=== PATIENT | male | born 1955 | race Caucasian/White ===

== ENCOUNTER 2019-07-08 07:32 | Inpatient (IN) | payer OTHER ==
[2019-07-08] MEDS ORDERED: RINGERS SOLUTION,LACTATED 1,000 ML IV ONE (08:19)
[2019-07-08 08:21] LABS: ABSOLUTE LYMPHOCYTES (AUTO) 0.6 10^3/uL (0.5-4.7); ABSOLUTE MONOCYTES (AUTO) 0.5 10^3/uL (0.1-1.4); ABSOLUTE NEUT (AUTO) 6.6 10^3/uL (1.7-8.2); BASOPHILS % (AUTO) 0.4 % (0-2); HEMATOCRIT 46.2 % (37.9-51.0); HEMOGLOBIN 15.8 g/dL (13.5-17.0); LYMPHOCYTES % (AUTO) 7.4 % (13-45); MEAN CORPUSCULAR HEMOGLOBIN 32.3 pg (27.0-33.4); MEAN CORPUSCULAR HGB CONC 34.2 g/dL (32.0-36.0); MEAN CORPUSCULAR VOLUME 95 fl (80-97); MONOCYTES % (AUTO) 6.9 % (3-13); PLATELET COUNT 145 10^3/uL (150-450); RED BLOOD COUNT 4.88 10^6/uL (4.35-5.55); RED CELL DISTRIBUTION WIDTH 12.9 % (11.5-14.0); SEGMENTED NEUTROPHILS % (AUTO) 85.3 % (42-78); TOTAL CELLS COUNTED % (AUTO) 100 %; WHITE BLOOD COUNT 7.7 10^3/uL (4.0-10.5)
--- NOTE | 2019-07-08 08:23 | ER Document Report ---
ED General - General Chief Complaint: Chest Pain Stated Complaint: CHEST PAIN Time Seen by Provider: 07/08/19 08:07 TRAVEL OUTSIDE OF THE [place] IN LAST 30 DAYS: No - HPI Context: Patient presents with cough congestion sputum production since Monday. He has been having burning in his chest worse with coughing better with not coughing. No history of heart attack or stroke. History of hypertension only otherwise states he has no known other medical problems. No abdominal pain. He is also been having intermittent vomiting. He states he had a sore throat but that is resolved. Notes: Patient presents with cough congestion since Monday with sputum production. He also has been having burning chest pain nonradiating worse with cough better with not coughing. States he has been feeling hot and cold has not had a flu shot this year. History of hypertension otherwise no other known medical problems that he knows of. He has had multiple bouts of vomiting as well since Monday in the absence of any abdominal pain. - Related Data Allergies/Adverse Reactions: codeine Allergy (Verified 07/08/19 11:42) Past Medical History - Social History Smoking Status: Never Smoker Chew tobacco use (# tins/day): No Frequency of alcohol use: None Drug Abuse: None Family History: Reviewed & Not Pertinent Patient has suicidal ideation: No Patient has homicidal ideation: No Review of Systems - Review of Systems Constitutional: No symptoms reported EENT: No symptoms reported Cardiovascular: See HPI Respiratory: See HPI Gastrointestinal: No symptoms reported Genitourinary: No symptoms reported Male Genitourinary: No symptoms reported Musculoskeletal: No symptoms reported Skin: No symptoms reported Hematologic/Lymphatic: No symptoms reported Neurological/Psychological: No symptoms reported Physical Exam - Vital signs Vitals: Temp Pulse Resp BP Pulse Ox 98.7 F 120 H 18 157/113 H 96 07/08/19 07:44 07/08/19 07:44 07/08/19 07:44 07/08/19 07:44 07/08/19 07:44 - General General appearance: Appears well, Alert - HEENT Head: Normocephalic, Atraumatic Eyes: Normal Conjunctiva: Normal Cornea: Normal Pupils: PERRL Sinus: Normal Nasal: Normal Mouth/Lips: Normal Mucous membranes: Dry - Respiratory Respiratory status: No respiratory distress Chest status: Nontender Breath sounds: Normal Chest palpation: Normal - Cardiovascular Rhythm: Tachycardia Heart sounds: Normal auscultation Murmur: No - Abdominal Inspection: Normal Distension: No distension Bowel sounds: Normal Tenderness: Nontender - Extremities General upper extremity: Normal inspection, Normal strength General lower extremity: Normal inspection, Normal strength - Neurological Neuro grossly intact: Yes Cognition: Normal Orientation: AAOx4 - Psychological Associated symptoms: Normal affect Course - Re-evaluation Re-evalutation: 07/08/19 11:39 Patient found to have elevated BNP with borderline troponin. Lungs show vascular congestion cardiomegaly. Appears patient having new onset CHF is hypertensive. Discussed case with who will place patient on Lasix and Vasotec. Will be admitted - Vital Signs Vital signs: Temp Pulse Resp BP Pulse Ox 99.3 F 120 H 18 142/72 H 96 07/08/19 12:01 07/08/19 07:44 07/08/19 13:01 07/08/19 13:01 07/08/19 13:01 - Laboratory Result Diagrams: 07/08/19 08:07 07/08/19 08:07 Laboratory results interpreted by me: 07/08/19 07/08/19 07/08/19 08:07 08:07 10:30 Plt Count 145 L Lymph % (Auto) 7.4 L Seg Neutrophils % 85.3 H Sodium 136.6 L BUN 22 H Glucose 132 H Total Bilirubin 1.7 H AST 82 H NT-Pro-B Natriuret Pep [id number] H Total Protein 6.1 L - EKG Interpretation by Me Additional EKG results interpreted by me: 07/08/19 08:25 Time 7:37 AM Rate of 117, sinus tachycardia, left bundle branch block, does not meet scarbosa criteria Discharge - Discharge Clinical Impression: New onset of congestive heart failure Condition: Good Disposition: ADMITTED INPATIENT Admitting Provider: Sunny (Hospitalist) Unit Admitted: Telemetry
[2019-07-08 08:39] LABS: ALBUMIN 3.6 g/dL (3.5-5.0); ALKALINE PHOSPHATASE 78 U/L (38-126); ANION GAP 11 (5-19); ASPARTATE AMINO TRANSFERASE 82 U/L (17-59); BILIRUBIN,DIRECT 0.4 mg/dL (0.0-0.4); BILIRUBIN,TOTAL 1.7 mg/dL (0.2-1.3); BLOOD UREA NITROGEN 22 mg/dL (7-20); CARBON DIOXIDE 22 mmol/L (22-30); CHLORIDE 104 mmol/L (98-107); CREATINE KINASE 149 U/L (55-170); GLUCOSE 132 mg/dL (75-110); POTASSIUM 4.5 mmol/L (3.6-5.0); TOTAL PROTEIN 6.1 g/dL (6.3-8.2)
[2019-07-08 08:49] LABS: CREATINE KINASE MB 0.91 ng/mL (<4.55)
[2019-07-08 08:52] LABS: TROPONIN I 0.101 ng/mL
--- NOTE | 2019-07-08 08:52 | RADIOLOGY REPORT (SQ) ---
EXAM DESCRIPTION: CHEST 2 VIEWS COMPLETED DATE/TIME: 07/08/2019 8:43 am REASON FOR STUDY: cough / congestion COMPARISON: None. NUMBER OF VIEWS: Two views. TECHNIQUE: Frontal and lateral radiographic views of the chest acquired. LIMITATIONS: None. FINDINGS: LUNGS AND PLEURA: No opacities, masses or pneumothorax. No pleural effusion. MEDIASTINUM AND HILAR STRUCTURES: No masses or contour abnormality. HEART AND VASCULAR STRUCTURES: Cardiac enlargement. Mild vascular congestion. BONES: No acute findings. HARDWARE: None in the chest. OTHER: No other significant finding. IMPRESSION: CARDIAC ENLARGEMENT. MILD VASCULAR CONGESTION. TECHNICAL DOCUMENTATION: JOB ID: [id number] [employer]- All Rights Reserved Reading location - IP/workstation name: [email or web address]
[2019-07-08] MEDS ORDERED: ASPIRIN 81 MG TABLET, CHEWABLE PO ONE (09:25)
[2019-07-08] MEDS ORDERED: NITROGLYCERIN 2% OINTMENT 1 GM PACKET TP ONE (09:27)
[2019-07-08 09:31] LABS: A TYPE INFLUENZA AG NEGATIVE (NEGATIVE); B INFLUENZA AG NEGATIVE (NEGATIVE)
[2019-07-08 11:12] LABS: TROPONIN I 0.1 ng/mL
[2019-07-08] MEDS ORDERED: ENALAPRILAT DIHYDRATE INJ/PF 2.5 MG/2 ML SDV IV ONE (12:15)
[2019-07-08] MEDS ORDERED: FUROSEMIDE INJ/PF 40 MG/4 ML SDV IV ONE (12:15)
--- NOTE | 2019-07-08 13:15 | EKG REPORT ---
SEVERITY:- ABNORMAL ECG - SINUS TACHYCARDIA MULTIPLE ATRIAL PREMATURE COMPLEXES LEFT ATRIAL ABNORMALITY LEFT BUNDLE BRANCH BLOCK : Confirmed by: Elier Zabala MD 08-Jul-2019 13:14:42
[2019-07-08] MEDS ORDERED: ONDANSETRON HCL INJ/PF 4 MG/2 ML SDV IV PRN (14:04)
[2019-07-08] MEDS ORDERED: MAG HYDROX/AL HYDROX/SIMETH SUSP 30 ML UDCUP PO PRN (14:04)
--- NOTE | 2019-07-08 14:44 | PDOC H&P ---
History of Present Illness Admission Date/PCP: 07/08/19 12:06 Patient complains of: Cough and chest pain History of Present Illness: AMINATA WATSON is a 63 year old male with a history of hypertension who presents to the hospital with complaints of progressive productive cough going on for the past 3 days. Cough is productive of some sputum with colors ranging from white to yellow to light green. Associated with it some posttussive emesis and had an episode of chills on Monday. Patient has also developed burning chest pain mostly in his right side but occasionally in his left parasternal region which began with the cough worsening. Denies any relationship to exertion or rest. Denies prior history of chest pains. Chest pain is aggravated by cough. Patient denies any history of congestive heart failure but does state that several years ago he was told that there was fluid buildup in his lungs from his heart rate beating its very fast. Denies history of atrial fibrillation. Patient currently states that the chest pain resolved since receiving the Lasix. Patient states that he takes only isosorbide and aspirin medications at home. Patient denies any shortness of breath, orthopnea, PND, or history of prior heart attacks. Past Medical History Cardiac Medical History: Reports: Hypertension Denies: Atrial Fibrillation, Congestive Heart Failure, Coronary Artery Disease, Myocardial Infarction Pulmonary Medical History: Denies: Asthma, Chronic Obstructive Pulmonary Disease (COPD) Endocrine Medical History: Denies: Diabetes Mellitus Type 1, Diabetes Mellitus Type 2 Past Surgical History Past Surgical History: Reports: None Social History Information Source: Patient Lives with: Other - NIECE Smoking Status: Never Smoker Electronic Cigarette use?: No Frequency of Alcohol Use: None Hx Recreational Drug Use: No Hx Prescription Drug Abuse: No - Advance Directive Resuscitation Status: Full Code Family History Family History: Hypertension, Malignancy - Lymphoma Parental Family History Reviewed: Yes Children Family History Reviewed: NA Sibling(s) Family History Reviewed.: Yes Medication/Allergy Home Medications: Aspirin [Aspir-Low] 81 mg PO DAILY 07/08/19 Atorvastatin Calcium [Lipitor 20 mg Tablet] 20 mg PO QHS 07/08/19 Carvedilol [Coreg 6.25 mg Tablet] 6.25 mg PO Q12 07/08/19 Hydralazine HCl [Apresoline 25 mg Tablet] 25 mg PO TID 07/08/19 Isosorbide Mononitrate [Imdur 30 mg Tablet.er] 30 mg PO DAILY 12/30/19 Pantoprazole Sodium 40 mg PO DAILY 07/08/19 Allergies/Adverse Reactions: codeine Allergy (Verified 07/08/19 11:42) Review of Systems Constitutional: PRESENT: chills. ABSENT: headache(s) Eyes: ABSENT: visual disturbances Cardiovascular: PRESENT: chest pain. ABSENT: edema, orthropnea Respiratory: PRESENT: cough. ABSENT: hemoptysis Gastrointestinal: PRESENT: as per HPI. ABSENT: abdominal pain, diarrhea Musculoskeletal: ABSENT: joint swelling Integumentary: ABSENT: diaphoresis Neurological: ABSENT: confusion Psychiatric: ABSENT: anxiety Physical Exam Vital Signs: Temp Pulse Resp BP Pulse Ox 99.3 F 120 H 18 142/72 H 96 07/08/19 12:01 07/08/19 07:44 07/08/19 13:01 07/08/19 13:01 07/08/19 13:01 Intake & Output 07/07/19 07/08/19 07/09/19 06:59 06:59 06:59 Intake Total 1000 Balance 1000 Weight 82.1 kg General appearance: PRESENT: no acute distress, cooperative Neck exam: ABSENT: JVD Respiratory exam: PRESENT: clear to auscultation donnell, symmetrical, unlabored. ABSENT: tachypnea, wheezes Cardiovascular exam: PRESENT: irregular rhythm, +S1, +S2, tachycardia GI/Abdominal exam: PRESENT: normal bowel sounds, soft. ABSENT: rebound, rigid, tenderness Extremities exam: ABSENT: calf tenderness, pedal edema, +1 edema, +2 edema Musculoskeletal exam: PRESENT: ambulatory Neurological exam: PRESENT: alert, awake, oriented to person, oriented to place, oriented to time, oriented to situation Results Laboratory Results: 07/08/19 08:07 07/08/19 08:07 07/08/19 07/08/19 07/08/19 08:07 08:07 08:07 WBC 7.7 RBC 4.88 Hgb 15.8 Hct 46.2 MCV 95 MCH 32.3 MCHC 34.2 RDW 12.9 Plt Count 145 L Seg Neutrophils % 85.3 H Sodium 136.6 L Potassium 4.5 Chloride 104 Carbon Dioxide 22 Anion Gap 11 BUN 22 H Creatinine 1.17 Est GFR ( Amer) > 60 Glucose 132 H Calcium 9.0 Magnesium 1.8 Total Bilirubin 1.7 H AST 82 H Alkaline Phosphatase 78 Total Protein 6.1 L Albumin 3.6 07/08/19 07/08/19 07/08/19 08:07 08:07 10:30 Creatine Kinase 149 CK-MB (CK-2) 0.91 Troponin I 0.101 0.100 NT-Pro-B Natriuret Pep [id number] H Impressions: Chest X-Ray 07/08/19 08:19 IMPRESSION: CARDIAC ENLARGEMENT. MILD VASCULAR CONGESTION. Assessment and Plan - Diagnosis (1) New onset of congestive heart failure Is this a current diagnosis for this admission?: Yes Plan: Patient denies any history of congestive heart failure but does report of history of fluid buildup in his lungs due to tachycardia several years ago. Chest x-ray shows cardiomegaly with pulmonary [place]. [place] [address] suggesting potential newly diagnosed congestive heart failure with EF unknown. Will check echocardiogram Lasix IV 40 mg daily with strict I's and O's and fluid restriction 1500 cc (2) Acute bronchitis Qualifiers: Bronchitis organism: unspecified organism Qualified Code(s): J20.9 - Acute bronchitis, unspecified Is this a current diagnosis for this admission?: Yes Plan: Patient's productive cough may be secondary to acute bronchitis likely viral or ?chf check sputum culture Supportive care (3) Chest pain Qualifiers: Chest pain type: intercostal pain Qualified Code(s): R07.82 - Intercostal pain Is this a current diagnosis for this admission?: Yes Plan: Chest pain is very atypical in nature and seems like it simply due to cough and may be some element of costochondritis However, in setting of left bundle branch block with unknown prior EKG, will need evaluation for CAD Cardiology consulted Troponin trend flat trend at 0.1 over the first 2. Will check 1 more. Chest pain currently resolved per patient after receiving Lasix. (4) Left bundle branch block (LBBB) determined by electrocardiography Is this a current diagnosis for this admission?: Yes Plan: Plan as above (5) Hypertension Qualifiers: Hypertension type: essential hypertension Qualified Code(s): I10 - Essential (primary) hypertension Is this a current diagnosis for this admission?: Yes Plan: Resume patient's isosorbide. Gave a dose of Vasotec and Lasix while in ER and nitro patch was placed as he came in with diastolic blood pressures in the 120s concerning for hypertensive emergency. BPs are currently better controlled now. - Time Time Spent with patient: 35 or more minutes
[2019-07-08] MEDS ORDERED: ACETAMINOPHEN 325 MG TABLET PO PRN (14:48)
[2019-07-08] MEDS: ISOSORBIDE MONONITRATE 30 MG TAB.ER.24H PO SCH (15:40)
[2019-07-08] MEDS ORDERED: LOSARTAN POTASSIUM 50 MG TABLET PO ONE (17:08)
[2019-07-08] MEDS: ATORVASTATIN CALCIUM 20 MG TABLET PO SCH (22:10)
[2019-07-08] MEDS: GUAIFENESIN 600 MG TABLET.SA PO SCH (22:10)
[2019-07-08] MEDS ORDERED: METOPROLOL TARTRATE PF/INJ 5 MG/5 ML SDV IV PRN (22:32)
[2019-07-09] MEDS: IPRATROPIUM BROMIDE 0.02% NEB 0.5 MG/2.5 ML AMPUL NEB PRN ×2 (02:17→11:04)
[2019-07-09 06:32] LABS: ABSOLUTE LYMPHOCYTES (AUTO) 1.1 10^3/uL (0.5-4.7); ABSOLUTE MONOCYTES (AUTO) 0.7 10^3/uL (0.1-1.4); ABSOLUTE NEUT (AUTO) 5.4 10^3/uL (1.7-8.2); BASOPHILS % (AUTO) 0.4 % (0-2); EOSINOPHILS % (AUTO) 0.3 % (0-6); HEMATOCRIT 41.9 % (37.9-51.0); HEMOGLOBIN 14.3 g/dL (13.5-17.0); LYMPHOCYTES % (AUTO) 14.9 % (13-45); MEAN CORPUSCULAR HEMOGLOBIN 32.6 pg (27.0-33.4); MEAN CORPUSCULAR HGB CONC 34.2 g/dL (32.0-36.0); MEAN CORPUSCULAR VOLUME 95 fl (80-97); MONOCYTES % (AUTO) 9.2 % (3-13); PLATELET COUNT 131 10^3/uL (150-450); RED CELL DISTRIBUTION WIDTH 12.9 % (11.5-14.0); SEGMENTED NEUTROPHILS % (AUTO) 75.2 % (42-78); TOTAL CELLS COUNTED % (AUTO) 100 %; WHITE BLOOD COUNT 7.1 10^3/uL (4.0-10.5)
[2019-07-09 06:49] LABS: ALBUMIN 2.9 g/dL (3.5-5.0); ALKALINE PHOSPHATASE 59 U/L (38-126); ANION GAP 7 (5-19); ASPARTATE AMINO TRANSFERASE 71 U/L (17-59); BILIRUBIN,DIRECT 0.3 mg/dL (0.0-0.4); BILIRUBIN,TOTAL 1.4 mg/dL (0.2-1.3); BLOOD UREA NITROGEN 26 mg/dL (7-20); CALCIUM 8.4 mg/dL (8.4-10.2); CARBON DIOXIDE 30 mmol/L (22-30); CHLORIDE 100 mmol/L (98-107); GLUCOSE 93 mg/dL (75-110); PHOSPHORUS 3.5 mg/dL (2.5-4.5); POTASSIUM 4.7 mmol/L (3.6-5.0); TOTAL PROTEIN 5.3 g/dL (6.3-8.2)
[2019-07-09 07:22] LABS: ERYTHROCYTE SEDIMENTATION RATE 10 mm/hr (0-20)
--- NOTE | 2019-07-09 07:25 | EKG REPORT ---
SEVERITY:- ABNORMAL ECG - SINUS RHYTHM LEFT ATRIAL ABNORMALITY LEFT BUNDLE BRANCH BLOCK : Confirmed by: Elier Zabala MD 09-Jul-2019 07:24:23
[2019-07-09] MEDS: ISOSORBIDE MONONITRATE 30 MG TAB.ER.24H PO SCH (09:09)
[2019-07-09] MEDS: PANTOPRAZOLE SODIUM 40 MG TABLET.DR PO SCH (09:09)
[2019-07-09] MEDS: GUAIFENESIN 600 MG TABLET.SA PO SCH ×2 (09:10→23:07)
[2019-07-09] MEDS: ASPIRIN 81 MG TABLET, ENT COATED PO SCH (09:10)
[2019-07-09] MEDS: LOSARTAN POTASSIUM 25 MG TABLET PO SCH ×2 (09:10→23:07)
[2019-07-09] MEDS: ENOXAPARIN SODIUM INJ 40 MG/0.4 ML DISP.SYRIN SUBCUT SCH (09:10)
[2019-07-09] MEDS ORDERED: FUROSEMIDE INJ/PF 40 MG/4 ML SDV IV SCH (10:00)
--- NOTE | 2019-07-09 12:41 | PDOC PROGRESS REPORT ---
Subjective Progress Note for:: 07/09/19 Subjective:: Patient still complaining of cough. Shortness of breath is only mild. Reason For Visit: CHF Physical Exam Vital Signs: Temp Pulse Resp BP Pulse Ox 99.9 F 113 H 14 129/102 H 94 07/09/19 12:00 07/09/19 12:00 07/09/19 12:00 07/09/19 12:00 07/09/19 12:00 Intake & Output 07/08/19 07/09/19 07/10/19 06:59 06:59 06:59 Intake Total 1000 Balance 1000 Weight 83.7 kg General appearance: PRESENT: no acute distress, cooperative Respiratory exam: PRESENT: crackles, symmetrical, unlabored. ABSENT: tachypnea, wheezes Cardiovascular exam: PRESENT: +S1, +S2, tachycardia. ABSENT: irregular rhythm GI/Abdominal exam: PRESENT: normal bowel sounds, soft. ABSENT: rebound, rigid, tenderness Extremities exam: ABSENT: pedal edema Neurological exam: PRESENT: alert, awake, oriented to person, oriented to place, oriented to time, oriented to situation Results Laboratory Results: 07/09/19 05:09 07/09/19 05:09 07/09/19 07/09/19 05:09 05:09 WBC 7.1 RBC 4.40 Hgb 14.3 Hct 41.9 MCV 95 MCH 32.6 MCHC 34.2 RDW 12.9 Plt Count 131 L Seg Neutrophils % 75.2 Sodium 136.5 L Potassium 4.7 Chloride 100 Carbon Dioxide 30 Anion Gap 7 BUN 26 H Creatinine 1.29 H Est GFR ( Amer) > 60 Glucose 93 Calcium 8.4 Phosphorus 3.5 Magnesium 1.8 Total Bilirubin 1.4 H AST 71 H Alkaline Phosphatase 59 Total Protein 5.3 L Albumin 2.9 L 07/08/19 07/08/19 07/08/19 08:07 08:07 10:30 Creatine Kinase 149 CK-MB (CK-2) 0.91 Troponin I 0.101 0.100 NT-Pro-B Natriuret Pep [id number] H 07/08/19 15:31 Creatine Kinase CK-MB (CK-2) Troponin I 0.111 NT-Pro-B Natriuret Pep Impressions: Chest X-Ray 07/08/19 08:19 IMPRESSION: CARDIAC ENLARGEMENT. MILD VASCULAR CONGESTION. Assessment and Plan - Diagnosis (1) New onset of congestive heart failure Is this a current diagnosis for this admission?: Yes Plan: Patient denies any history of congestive heart failure but does report of history of fluid buildup in his lungs due to tachycardia several years ago. Chest x-ray shows cardiomegaly with pulmonary vascular congestion. [place] [address] suggesting potential newly diagnosed congestive heart failure with EF unknown. Echocardiogram pending Lasix IV 40 mg daily with strict I's and O's and fluid restriction 1500 cc Losartan initiated Starting Coreg today Cardiology following (2) Acute bronchitis Qualifiers: Bronchitis organism: unspecified organism Qualified Code(s): J20.9 - Acute bronchitis, unspecified Is this a current diagnosis for this admission?: Yes Plan: Patient's productive cough may be secondary to acute bronchitis likely viral or ?chf check sputum culture Supportive care (3) Chest pain Qualifiers: Chest pain type: intercostal pain Qualified Code(s): R07.82 - Intercostal pain Is this a current diagnosis for this admission?: Yes Plan: Resolved currently chest pain is very atypical in nature and seems like it simply due to cough and may be some element of costochondritis However, in setting of left bundle branch block with unknown prior EKG, will need evaluation for CAD Cardiology consulted Troponin trend flat x3 (4) Left bundle branch block (LBBB) determined by electrocardiography Is this a current diagnosis for this admission?: Yes Plan: Plan as above (5) Hypertension Qualifiers: Hypertension type: essential hypertension Qualified Code(s): I10 - Essential (primary) hypertension Is this a current diagnosis for this admission?: Yes Plan: Continue isosorbide Losartan Started on Coreg - Time Time Spent with patient: 15-24 minutes
--- NOTE | 2019-07-09 13:47 | PDOC CONSULTATION ---
Consultation Consult Date: 07/09/19 Attending physician:: JEFFERY TORRES Provider Consulted: CARMEN BOYLE Consult reason:: Dyspnea History of Present Illness Admission Date/PCP: 07/08/19 12:06 History of Present Illness: AMINATA WATSON is a 63 year old male with the following medical problem 1. Longstanding hypertension Over the course of the last 5 days patient has presented with worsening shortness of breath and cough with expectoration. There are no symptoms to suggest an ongoing pneumonic process. Patient has family history of hypertension but no specific cardiac illnesses reported. He does not smoke cigarettes. No prior cardiac history or testing is reported. No chest pain is reported. His EKG has left bundle branch block. Past Medical History Cardiac Medical History: Reports: Hypertension Denies: Atrial Fibrillation, Congestive Heart Failure, Coronary Artery Disease, Myocardial Infarction Pulmonary Medical History: Denies: Asthma, Chronic Obstructive Pulmonary Disease (COPD) Endocrine Medical History: Denies: Diabetes Mellitus Type 1, Diabetes Mellitus Type 2 Past Surgical History Past Surgical History: Reports: None Social History Lives with: Other - NIECE Smoking Status: Never Smoker Electronic Cigarette use?: No Frequency of Alcohol Use: None Hx Recreational Drug Use: No Drugs: None Hx Prescription Drug Abuse: No - Advance Directive Resuscitation Status: Full Code Family History Family History: Reviewed & Not Pertinent Parental Family History Reviewed: Yes Children Family History Reviewed: NA Sibling(s) Family History Reviewed.: NA Medication/Allergy Home Medications: Aspirin [Aspir-Low] 81 mg PO DAILY 07/08/19 Atorvastatin Calcium [Lipitor 20 mg Tablet] 20 mg PO QHS 07/08/19 Carvedilol [Coreg 6.25 mg Tablet] 6.25 mg PO Q12 07/08/19 Hydralazine HCl [Apresoline 25 mg Tablet] 25 mg PO TID 07/08/19 Isosorbide Mononitrate [Imdur 30 mg Tablet.er] 30 mg PO DAILY 07/08/19 Pantoprazole Sodium 40 mg PO DAILY 07/08/19 Allergies/Adverse Reactions: codeine Allergy (Verified 07/08/19 11:42) Review of Systems Constitutional: PRESENT: as per HPI Cardiovascular: PRESENT: dyspnea on exertion Respiratory: PRESENT: cough, dyspnea Genitourinary: PRESENT: as per HPI Integumentary: PRESENT: as per HPI Physical Exam Vital Signs: Temp Pulse Resp BP Pulse Ox 99.9 F 113 H 14 129/102 H 94 07/09/19 12:00 07/09/19 12:00 07/09/19 12:00 07/09/19 12:00 07/09/19 12:00 Intake & Output 07/08/19 07/09/19 07/10/19 06:59 06:59 06:59 Intake Total 1000 360 Output Total 300 Balance 1000 60 Weight 83.7 kg General appearance: PRESENT: no acute distress, cooperative Head exam: PRESENT: atraumatic, normocephalic Eye exam: PRESENT: conjunctiva pink, EOMI Mouth exam: PRESENT: moist Neck exam: PRESENT: JVD Respiratory exam: PRESENT: crackles, decreased breath sounds, unlabored Cardiovascular exam: PRESENT: RRR, +S1, +S2 Pulses: PRESENT: normal radial pulses GI/Abdominal exam: PRESENT: soft Rectal exam: PRESENT: deferred Musculoskeletal exam: PRESENT: normal inspection Neurological exam: PRESENT: alert, awake, oriented to person, oriented to place, oriented to time Psychiatric exam: PRESENT: appropriate affect Skin exam: PRESENT: dry, intact Results Laboratory Results: 07/09/19 05:09 07/09/19 05:09 07/09/19 07/09/19 05:09 05:09 WBC 7.1 RBC 4.40 Hgb 14.3 Hct 41.9 MCV 95 MCH 32.6 MCHC 34.2 RDW 12.9 Plt Count 131 L Seg Neutrophils % 75.2 Sodium 136.5 L Potassium 4.7 Chloride 100 Carbon Dioxide 30 Anion Gap 7 BUN 26 H Creatinine 1.29 H Est GFR ( Amer) > 60 Glucose 93 Calcium 8.4 Phosphorus 3.5 Magnesium 1.8 Total Bilirubin 1.4 H AST 71 H Alkaline Phosphatase 59 Total Protein 5.3 L Albumin 2.9 L 07/08/19 07/08/19 07/08/19 08:07 08:07 10:30 Creatine Kinase 149 CK-MB (CK-2) 0.91 Troponin I 0.101 0.100 NT-Pro-B Natriuret Pep [id number] H 07/08/19 15:31 Creatine Kinase CK-MB (CK-2) Troponin I 0.111 NT-Pro-B Natriuret Pep EKG Comments: Twelve-lead EKG. Independently reviewed by me. Sinus rhythm, left bundle branch block, left atrial abnormality Impressions: Chest X-Ray 07/08/19 08:19 IMPRESSION: CARDIAC ENLARGEMENT. MILD VASCULAR CONGESTION. Assessment & Plan - Diagnosis (1) New onset of congestive heart failure Is this a current diagnosis for this admission?: Yes Plan: 1. Presentation consistent with new onset congestive heart failure Agree with intravenous diuretics. Watch fluid status Watch electrolytes including potassium and magnesium as we are diuresing Patient has elevated JVD and crackles indicative of volume overload. Obtain transthoracic echocardiogram (2) Left bundle branch block (LBBB) determined by electrocardiography Is this a current diagnosis for this admission?: Yes Plan: EKG with left bundle branch block We will obtain transthoracic echocardiogram No ischemic symptoms at the moment. (3) Hypertension Qualifiers: Hypertension type: essential hypertension Qualified Code(s): I10 - Essential (primary) hypertension Is this a current diagnosis for this admission?: Yes Plan: Agree with present regimen of antihypertensives. Continue losartan Continue carvedilol - Notes Notes: Initiate diuretic therapy Better control blood pressure Transthoracic echocardiogram
[2019-07-09] MEDS: MAGNESIUM OXIDE 400 MG TABLET PO SCH (14:26)
[2019-07-09] MEDS: CARVEDILOL 6.25 MG TABLET PO SCH ×2 (14:26→23:07)
--- NOTE | 2019-07-09 19:08 | XCELERA REPORT ---
[address] [address] Transthoracic Echocardiogram Report Name: AMINATA WATSON Age: 63 yrs Gender: Male : 1955 Patient Status: [facility] Date: 07/09/2019 03:47 PM History: CHF Height: 71 in Weight: 181 lb BSA: 2.0 m2 Procedure: A complete two-dimensional transthoracic echocardiogram was performed (2D, M-mode, spectral and color flow Doppler). Reason For Study: chf? Previous Evaluation: No previous studies were available. History: Shortness of breath. CHF. Ordering Physician: JEFFERY TORRES Performed By: Suzanne De Los Santos Interpretation Summary The left ventricle is severely dilated. Left ventricular systolic function is severely reduced. LV EF is 15-20% The right ventricular systolic function is moderately reduced. There is a moderate amount of mitral regurgitation There is no aortic valve stenosis There is a moderate amount of aortic regurgitation There is a moderate to severe amount of tricuspid regurgitation Minimal pericardial effusion. MMode/2D Measurements & Calculations RVDd: 3.7 cm LVIDd: 8.0 cm FS: 10.7 % Ao root diam: IVSd: 1.1 cm LVIDs: 7.1 cm EDV(Teich): 3.2 cm LVPWd: 1.1 cm 341.8 ml Ao root area: ESV(Teich): 7.9 cm2 265.5 ml LA dimension: EF(Teich): 22.3 % 5.0 cm LVLd ap4: 7.9 cm SV(MOD-sp4): 32.0 ml EDV(MOD-sp4): 202.0 ml LVLs ap4: 7.5 cm ESV(MOD-sp4): 170.0 ml EF(MOD-sp4): 15.8 % Doppler Measurements & Calculations MV E max kenny: MV P1/2t max kenny: Ao V2 max: AI max kenny: 98.7 cm/sec 94.8 cm/sec 89.6 cm/sec 386.1 cm/sec MV A max kenny: MV P1/2t: 29.6 msec Ao max PG: AI max P.0 cm/sec MVA(P1/2t): 7.4 cm2 3.2 mmHg 59.6 mmHg MV E/A: 2.8 MV dec slope: AI dec slope: 461.9 cm/sec2 937.1 cm/sec2 AI P1/2t: MV dec time: 244.8 msec 0.10 sec LV V1 max PG: PA V2 max: PI end-d kenny: TR max kenny: 2.2 mmHg 51.3 cm/sec 175.1 cm/sec 271.5 cm/sec LV V1 max: PA max P.1 mmHg TR max P.0 cm/sec 29.5 mmHg AV P1/2t-pr_phl: MV P1/2t-pr_phl: 244.8 msec 29.8 msec Left Ventricle The left ventricle is severely dilated. There is moderate concentric left ventricular hypertrophy. Left ventricular systolic function is severely reduced. LV EF is 15-20%. The transmitral spectral Doppler flow pattern is abnormal for age. There is severe global hypokinesis of the left ventricle. Right Ventricle The right ventricle is moderately dilated. The right ventricular systolic function is moderately reduced. Atria The right atrium is moderately dilated. The left atrium is moderately dilated. The interatrial septum is intact with no evidence for an atrial septal defect. The interatrial septum bows toward right atrium consistent with elevated left atrial pressure. Mitral Valve The mitral valve is grossly normal. There is a moderate amount of mitral regurgitation. Aortic Valve The aortic valve is sclerotic, but shows no functional abnormality. The aortic valve opens well. There is no aortic valve stenosis. There is a moderate amount of aortic regurgitation. Tricuspid Valve The tricuspid valve is not well visualized, but is grossly normal. There is a moderate to severe amount of tricuspid regurgitation. Pulmonic Valve The pulmonic valve is not well seen, but is grossly normal. There is a moderate amount of pulmonic regurgitation. Great Vessels The aortic root is normal size. The inferior vena cava appeared dilated and did not change with respiration (RAP > 20 mmHg). Effusions Minimal pericardial effusion. : JEFFERY TORRES Anil
[2019-07-09] MEDS: ATORVASTATIN CALCIUM 20 MG TABLET PO SCH (23:07)
[2019-07-10 05:44] LABS: ABSOLUTE EOSINOPHILS # (AUTO) 0.2 10^3/uL (0.0-0.6); ABSOLUTE MONOCYTES (AUTO) 0.7 10^3/uL (0.1-1.4); ABSOLUTE NEUT (AUTO) 5.9 10^3/uL (1.7-8.2); BASOPHILS % (AUTO) 0.4 % (0-2); EOSINOPHILS % (AUTO) 2.1 % (0-6); HEMATOCRIT 42.2 % (37.9-51.0); HEMOGLOBIN 14.4 g/dL (13.5-17.0); LYMPHOCYTES % (AUTO) 13.1 % (13-45); MEAN CORPUSCULAR HEMOGLOBIN 32.4 pg (27.0-33.4); MEAN CORPUSCULAR VOLUME 95 fl (80-97); MONOCYTES % (AUTO) 8.9 % (3-13); PLATELET COUNT 147 10^3/uL (150-450); RED BLOOD COUNT 4.44 10^6/uL (4.35-5.55); RED CELL DISTRIBUTION WIDTH 12.9 % (11.5-14.0); SEGMENTED NEUTROPHILS % (AUTO) 75.5 % (42-78); TOTAL CELLS COUNTED % (AUTO) 100 %; WHITE BLOOD COUNT 7.9 10^3/uL (4.0-10.5)
[2019-07-10 05:48] LABS: ANION GAP 9 (5-19); BLOOD UREA NITROGEN 28 mg/dL (7-20); CALCIUM 8.4 mg/dL (8.4-10.2); CARBON DIOXIDE 26 mmol/L (22-30); CHLORIDE 101 mmol/L (98-107); GLUCOSE 104 mg/dL (75-110); POTASSIUM 4.1 mmol/L (3.6-5.0)
[2019-07-10] MEDS: ISOSORBIDE MONONITRATE 30 MG TAB.ER.24H PO SCH (09:27)
[2019-07-10] MEDS: FUROSEMIDE INJ/PF 40 MG/4 ML SDV IV SCH ×2 (09:27→17:10)
[2019-07-10] MEDS: ASPIRIN 81 MG TABLET, ENT COATED PO SCH (09:27)
[2019-07-10] MEDS: PANTOPRAZOLE SODIUM 40 MG TABLET.DR PO SCH (09:27)
[2019-07-10] MEDS: MAGNESIUM OXIDE 400 MG TABLET PO SCH (09:27)
[2019-07-10] MEDS: GUAIFENESIN 600 MG TABLET.SA PO SCH ×2 (09:27→21:54)
[2019-07-10] MEDS: LOSARTAN POTASSIUM 25 MG TABLET PO SCH ×2 (09:28→21:54)
[2019-07-10] MEDS: CARVEDILOL 6.25 MG TABLET PO SCH ×2 (09:28→21:54)
[2019-07-10] MEDS: ENOXAPARIN SODIUM INJ 40 MG/0.4 ML DISP.SYRIN SUBCUT SCH (09:28)
--- NOTE | 2019-07-10 17:31 | PDOC PROGRESS REPORT ---
Subjective Progress Note for:: 07/10/19 Subjective:: Patient is still experiencing cough. However denies orthopnea and's shortness of breath still Reason For Visit: CHF Physical Exam Vital Signs: Temp Pulse Resp BP Pulse Ox 98.7 F 82 18 127/78 H 96 07/10/19 16:00 07/10/19 16:00 07/10/19 16:00 07/10/19 16:00 07/10/19 16:00 Intake & Output 07/09/19 07/10/19 07/11/19 06:59 06:59 06:59 Intake Total 1000 796 Output Total 500 Balance 1000 296 Weight 83.7 kg 83 kg General appearance: PRESENT: no acute distress, cooperative Respiratory exam: PRESENT: crackles, symmetrical, unlabored. ABSENT: tachypnea, wheezes Cardiovascular exam: PRESENT: RRR, +S1, +S2. ABSENT: tachycardia GI/Abdominal exam: PRESENT: soft. ABSENT: rebound, rigid, tenderness Extremities exam: ABSENT: pedal edema Neurological exam: PRESENT: alert, awake, oriented to person, oriented to place, oriented to time, oriented to situation Results Laboratory Results: 07/10/19 04:57 07/10/19 04:57 07/10/19 07/10/19 04:57 04:57 WBC 7.9 RBC 4.44 Hgb 14.4 Hct 42.2 MCV 95 MCH 32.4 MCHC 34.0 RDW 12.9 Plt Count 147 L Seg Neutrophils % 75.5 Sodium 136.1 L Potassium 4.1 Chloride 101 Carbon Dioxide 26 Anion Gap 9 BUN 28 H Creatinine 1.32 H Est GFR ( Amer) > 60 Glucose 104 Calcium 8.4 Magnesium 2.0 07/08/19 07/08/19 07/08/19 08:07 08:07 10:30 Creatine Kinase 149 CK-MB (CK-2) 0.91 Troponin I 0.101 0.100 NT-Pro-B Natriuret Pep [id number] H 07/08/19 15:31 Creatine Kinase CK-MB (CK-2) Troponin I 0.111 NT-Pro-B Natriuret Pep Impressions: Chest X-Ray 07/08/19 08:19 IMPRESSION: CARDIAC ENLARGEMENT. MILD VASCULAR CONGESTION. Assessment and Plan - Diagnosis (1) Acute systolic heart failure Is this a current diagnosis for this admission?: Yes Plan: New onset systolic congestive heart Echocardiogram showing findings consistent with dilated cardiomyopathy with EF of 15 to 20%, moderate aortic regurgitation, moderate mitral regurgitation, tricuspid regurgitation with global LV hypokinesis Increase Lasix to 80 mg IV twice daily given inadequate diuresis on [address] condom catheter to ensure strict I's and Os fluid restriction 1500 cc Adequate afterload reduction with Coreg which are increased to 12.5 mg twice daily and losartan Cardiology following. Recommendations very much appreciated. (2) Acute bronchitis Qualifiers: Bronchitis organism: unspecified organism Qualified Code(s): J20.9 - Acute bronchitis, unspecified Is this a current diagnosis for this admission?: Yes Plan: Stable at this time but patient's cough seems to be mostly from CHF at this point (3) Chest pain Qualifiers: Chest pain type: intercostal pain Qualified Code(s): R07.82 - Intercostal pain Is this a current diagnosis for this admission?: Yes Plan: Resolved currently (4) Left bundle branch block (LBBB) determined by electrocardiography Is this a current diagnosis for this admission?: Yes Plan: No prior EKGs for comparison recently No evidence of ACS at this time as troponin had flat trend of 0.13 Patient will follow up with Dr. Boo Staples outpatient to schedule ischemic work-up (5) Hypertension Qualifiers: Hypertension type: essential hypertension Qualified Code(s): I10 - Essential (primary) hypertension Is this a current diagnosis for this admission?: Yes Plan: Blood pressure pressure is now better controlled with losartan and Coreg as well as isosorbide - Time Time Spent with patient: 15-24 minutes
[2019-07-10] MEDS ORDERED: FUROSEMIDE INJ/PF 40 MG/4 ML SDV IV SCH (18:00)
[2019-07-10] MEDS: ATORVASTATIN CALCIUM 20 MG TABLET PO SCH (21:54)
[2019-07-11 04:45] LABS: ABSOLUTE EOSINOPHILS # (AUTO) 0.4 10^3/uL (0.0-0.6); ABSOLUTE LYMPHOCYTES (AUTO) 1.4 10^3/uL (0.5-4.7); ABSOLUTE MONOCYTES (AUTO) 0.7 10^3/uL (0.1-1.4); ABSOLUTE NEUT (AUTO) 3.5 10^3/uL (1.7-8.2); BASOPHILS % (AUTO) 0.8 % (0-2); EOSINOPHILS % (AUTO) 6.5 % (0-6); HEMATOCRIT 45.7 % (37.9-51.0); HEMOGLOBIN 15.4 g/dL (13.5-17.0); LYMPHOCYTES % (AUTO) 23.2 % (13-45); MEAN CORPUSCULAR HEMOGLOBIN 32.2 pg (27.0-33.4); MEAN CORPUSCULAR HGB CONC 33.6 g/dL (32.0-36.0); MEAN CORPUSCULAR VOLUME 96 fl (80-97); MONOCYTES % (AUTO) 11.5 % (3-13); PLATELET COUNT 169 10^3/uL (150-450); RED BLOOD COUNT 4.78 10^6/uL (4.35-5.55); RED CELL DISTRIBUTION WIDTH 13.3 % (11.5-14.0); TOTAL CELLS COUNTED % (AUTO) 100 %
[2019-07-11 05:01] LABS: BLOOD UREA NITROGEN 30 mg/dL (7-20); CALCIUM 8.5 mg/dL (8.4-10.2); CHLORIDE 100 mmol/L (98-107); GLUCOSE 99 mg/dL (75-110)
[2019-07-11 05:10] LABS: ANION GAP 6 (5-19)
[2019-07-11 05:11] LABS: CARBON DIOXIDE 35 mmol/L (22-30); POTASSIUM 5.1 mmol/L (3.6-5.0)
[2019-07-11] MEDS ORDERED: FUROSEMIDE INJ/PF 100 MG/10 ML SDV IV SCH (10:00)
[2019-07-11] MEDS: MAGNESIUM OXIDE 400 MG TABLET PO SCH (10:29)
[2019-07-11] MEDS: GUAIFENESIN 600 MG TABLET.SA PO SCH ×2 (10:29→21:29)
[2019-07-11] MEDS: ISOSORBIDE MONONITRATE 30 MG TAB.ER.24H PO SCH (10:29)
[2019-07-11] MEDS: LOSARTAN POTASSIUM 25 MG TABLET PO SCH ×2 (10:30→21:29)
[2019-07-11] MEDS: ASPIRIN 81 MG TABLET, ENT COATED PO SCH (10:30)
[2019-07-11] MEDS: CARVEDILOL 6.25 MG TABLET PO SCH ×2 (10:30→21:29)
[2019-07-11] MEDS: PANTOPRAZOLE SODIUM 40 MG TABLET.DR PO SCH (10:30)
[2019-07-11] MEDS: ENOXAPARIN SODIUM INJ 40 MG/0.4 ML DISP.SYRIN SUBCUT SCH (10:30)
--- NOTE | 2019-07-11 18:44 | PDOC PROGRESS REPORT ---
Subjective Progress Note for:: 07/11/19 Subjective:: Patient continues to have some cough but is improved. Denies shortness of breath at this time. Reason For Visit: CHF Physical Exam Vital Signs: Temp Pulse Resp BP Pulse Ox 98.4 F 77 18 124/88 H 95 07/11/19 16:00 07/11/19 16:00 07/11/19 16:00 07/11/19 16:00 07/11/19 16:00 Intake & Output 07/10/19 07/11/19 07/12/19 06:59 06:59 06:59 Intake Total 796 1306 260 Output Total 500 1725 Balance 296 -419 260 Weight 83 kg 80 kg General appearance: PRESENT: no acute distress, cooperative Respiratory exam: PRESENT: crackles - Basilar, symmetrical, unlabored. ABSENT: tachypnea, wheezes Cardiovascular exam: PRESENT: RRR, +S1, +S2. ABSENT: diastolic murmur, systolic murmur, tachycardia GI/Abdominal exam: PRESENT: normal bowel sounds, soft. ABSENT: rebound, rigid, tenderness Extremities exam: PRESENT: other - Extremities are warm with well palpable pulses. ABSENT: pedal edema Neurological exam: PRESENT: alert, awake, oriented to person, oriented to place, oriented to time, oriented to situation Results Laboratory Results: 07/11/19 03:43 07/11/19 03:43 07/11/19 07/11/19 03:43 03:43 WBC 6.0 RBC 4.78 Hgb 15.4 Hct 45.7 MCV 96 MCH 32.2 MCHC 33.6 RDW 13.3 Plt Count 169 Seg Neutrophils % 58.0 Sodium 140.8 Potassium 5.1 H D Chloride 100 Carbon Dioxide 35 H Anion Gap 6 BUN 30 H Creatinine 1.62 H Est GFR ( Amer) 52 L Glucose 99 Calcium 8.5 07/08/19 07/08/19 07/08/19 08:07 08:07 10:30 Creatine Kinase 149 CK-MB (CK-2) 0.91 Troponin I 0.101 0.100 NT-Pro-B Natriuret Pep [id number] H 07/08/19 15:31 Creatine Kinase CK-MB (CK-2) Troponin I 0.111 NT-Pro-B Natriuret Pep Impressions: Chest X-Ray 07/08/19 08:19 IMPRESSION: CARDIAC ENLARGEMENT. MILD VASCULAR CONGESTION. Assessment and Plan - Diagnosis (1) Acute systolic heart failure Is this a current diagnosis for this admission?: Yes Plan: New onset systolic congestive heart Echocardiogram showing findings consistent with dilated cardiomyopathy with EF of 15 to 20%, moderate aortic regurgitation, moderate mitral regurgitation, tricuspid regurgitation with global LV hypokinesis We will hold Lasix today given COURTNEY and will just opt for optimization of afterload reduction to manage patient's heart failure. We will reintroduce Lasix once COURTNEY improves. At this time patient has warm extremities with well palpable distal pulses. Patient declined condom catheter Maintain strict I's and O's and trend creatinine fluid restriction 1500 cc Continue Coreg 12.5 mg twice daily and losartan and isosorbide Cardiology following. Recommendations very much appreciated. (2) Acute bronchitis Qualifiers: Bronchitis organism: unspecified organism Qualified Code(s): J20.9 - Acute bronchitis, unspecified Is this a current diagnosis for this admission?: Yes Plan: Stable at this time but patient's cough seems to be mostly from CHF at this point (3) Acute kidney injury superimposed on chronic kidney disease Is this a current diagnosis for this admission?: Yes Plan: Will hold Lasix today and continue to monitor creatinine (4) Left bundle branch block (LBBB) determined by electrocardiography Is this a current diagnosis for this admission?: Yes Plan: No prior EKGs for comparison recently No evidence of ACS at this time as troponin had flat trend of 0.13 Patient will follow up with Dr. Boo Staples outpatient to schedule ischemic work-up (5) Hypertension Qualifiers: Hypertension type: essential hypertension Qualified Code(s): I10 - Essential (primary) hypertension Is this a current diagnosis for this admission?: Yes Plan: Blood pressure pressure is now controlled with losartan and Coreg as well as isosorbide (6) Chest pain Qualifiers: Chest pain type: intercostal pain Qualified Code(s): R07.82 - Intercostal pain Is this a current diagnosis for this admission?: Yes Plan: Resolved currently - Time Time Spent with patient: 15-24 minutes
[2019-07-11] MEDS: ATORVASTATIN CALCIUM 20 MG TABLET PO SCH (21:29)
[2019-07-12 06:47] LABS: ANION GAP 5 (5-19); BLOOD UREA NITROGEN 28 mg/dL (7-20); CALCIUM 8.8 mg/dL (8.4-10.2); CARBON DIOXIDE 32 mmol/L (22-30); CHLORIDE 103 mmol/L (98-107); GLUCOSE 96 mg/dL (75-110); POTASSIUM 5.3 mmol/L (3.6-5.0)
[2019-07-12] MEDS: CARVEDILOL 6.25 MG TABLET PO SCH ×2 (09:36→22:08)
[2019-07-12] MEDS: ASPIRIN 81 MG TABLET, ENT COATED PO SCH (09:36)
[2019-07-12] MEDS: PANTOPRAZOLE SODIUM 40 MG TABLET.DR PO SCH (09:36)
[2019-07-12] MEDS: ISOSORBIDE MONONITRATE 30 MG TAB.ER.24H PO SCH (09:36)
[2019-07-12] MEDS: ENOXAPARIN SODIUM INJ 40 MG/0.4 ML DISP.SYRIN SUBCUT SCH (09:37)
[2019-07-12] MEDS: LOSARTAN POTASSIUM 25 MG TABLET PO SCH ×2 (09:37→22:08)
[2019-07-12] MEDS: GUAIFENESIN 600 MG TABLET.SA PO SCH (09:37)
[2019-07-12] MEDS: MAGNESIUM OXIDE 400 MG TABLET PO SCH (09:37)
[2019-07-12] MEDS: FUROSEMIDE 40 MG TABLET PO SCH ×2 (10:58→17:12)
--- NOTE | 2019-07-12 15:49 | PDOC PROGRESS REPORT ---
Subjective Subjective:: Patient continues to have some cough but is improved. Denies shortness of breath at this time. Reason For Visit: CHF Physical Exam Vital Signs: Temp Pulse Resp BP Pulse Ox 98.3 F 78 16 125/75 95 07/12/19 12:00 07/12/19 14:00 07/12/19 12:00 07/12/19 12:00 07/12/19 12:00 Intake & Output 07/11/19 07/12/19 07/13/19 06:59 06:59 06:59 Intake Total 1306 1212 1000 Output Total 1725 1100 Balance -367 186 8948 Weight 80 kg 81.4 kg General appearance: PRESENT: no acute distress, cooperative Neck exam: ABSENT: JVD Respiratory exam: PRESENT: clear to auscultation donnell, symmetrical, unlabored. ABSENT: tachypnea, wheezes Cardiovascular exam: PRESENT: RRR, +S1, +S2. ABSENT: irregular rhythm, tachycardia GI/Abdominal exam: PRESENT: normal bowel sounds, soft. ABSENT: distended, firm, guarding, rebound, rigid, tenderness Extremities exam: PRESENT: other - Warm extremities. ABSENT: pedal edema Neurological exam: PRESENT: alert, awake, oriented to person, oriented to place, oriented to time, oriented to situation Results Laboratory Results: 07/11/19 03:43 07/12/19 05:58 07/12/19 05:58 Sodium 140.2 Potassium 5.3 H Chloride 103 Carbon Dioxide 32 H Anion Gap 5 BUN 28 H Creatinine 1.27 H Est GFR ( Amer) > 60 Glucose 96 Calcium 8.8 07/08/19 07/08/19 07/08/19 08:07 08:07 10:30 Creatine Kinase 149 CK-MB (CK-2) 0.91 Troponin I 0.101 0.100 NT-Pro-B Natriuret Pep [id number] H 07/08/19 15:31 Creatine Kinase CK-MB (CK-2) Troponin I 0.111 NT-Pro-B Natriuret Pep Impressions: Chest X-Ray 07/08/19 08:19 IMPRESSION: CARDIAC ENLARGEMENT. MILD VASCULAR CONGESTION. Assessment and Plan - Diagnosis (1) Acute systolic heart failure Is this a current diagnosis for this admission?: Yes Plan: New onset systolic congestive heart Echocardiogram showing findings consistent with dilated cardiomyopathy with EF of 15 to 20%, moderate aortic regurgitation, moderate mitral regurgitation, tricuspid regurgitation with global LV hypokinesis COURTNEY has improved we will start on p.o. Lasix 40 mg twice a day monitor BMP and renal function Continue Coreg 12.5 mg twice daily and losartan and isosorbide Cardiology following. Recommendations very much appreciated. Patient is being scheduled for LifeVest at discharge-I have explained the details and need for LifeVest to patient elaborately. (2) Acute bronchitis Qualifiers: Bronchitis organism: unspecified organism Qualified Code(s): J20.9 - Acute bronchitis, unspecified Is this a current diagnosis for this admission?: Yes Plan: Stable at this time but patient's cough seems to be mostly from CHF at this point (3) Acute kidney injury superimposed on chronic kidney disease Is this a current diagnosis for this admission?: Yes Plan: Creatinine improved today. Will resume Lasix at oral dose and monitor kidney function. Hopefully hyperkalemia will resolve (4) Left bundle branch block (LBBB) determined by electrocardiography Is this a current diagnosis for this admission?: Yes Plan: No prior EKGs for comparison recently No evidence of ACS at this time as troponin had flat trend of 0.13 Patient will follow up with Dr. Boo Staples outpatient to schedule ischemic work-up (5) Hypertension Qualifiers: Hypertension type: essential hypertension Qualified Code(s): I10 - Essential (primary) hypertension Is this a current diagnosis for this admission?: Yes Plan: Blood pressure pressure is now controlled with losartan and Coreg as well as isosorbide (6) Chest pain Qualifiers: Chest pain type: intercostal pain Qualified Code(s): R07.82 - Intercostal pain Is this a current diagnosis for this admission?: Yes Plan: Resolved currently - Time Time Spent with patient: 15-24 minutes
[2019-07-12] MEDS: ATORVASTATIN CALCIUM 20 MG TABLET PO SCH (22:08)
--- NOTE | 2019-07-12 23:37 | PDOC PROGRESS REPORT ---
Subjective Progress Note for:: 07/12/19 Subjective:: Patient seen and examined. Feels better. Has cough still; but overall much improved. Reason For Visit: CHF Physical Exam Vital Signs: Temp Pulse Resp BP Pulse Ox 98.5 F 90 17 130/91 H 96 07/12/19 19:18 07/12/19 19:18 07/12/19 19:18 07/12/19 19:18 07/12/19 19:18 Intake & Output 07/11/19 07/12/19 07/13/19 06:59 06:59 06:59 Intake Total 1306 1212 1236 Output Total 1725 1100 Balance -884 674 4321 Weight 80 kg 81.4 kg General appearance: PRESENT: no acute distress Mouth exam: PRESENT: moist Respiratory exam: PRESENT: decreased breath sounds, rales, unlabored Cardiovascular exam: PRESENT: RRR, +S1, +S2, systolic murmur GI/Abdominal exam: PRESENT: soft Rectal exam: PRESENT: deferred Neurological exam: PRESENT: alert, oriented to person, oriented to place, oriented to time, oriented to situation, CN II-XII grossly intact Psychiatric exam: PRESENT: appropriate affect Skin exam: PRESENT: dry, intact Results Laboratory Results: 07/11/19 03:43 07/12/19 05:58 07/12/19 05:58 Sodium 140.2 Potassium 5.3 H Chloride 103 Carbon Dioxide 32 H Anion Gap 5 BUN 28 H Creatinine 1.27 H Est GFR ( Amer) > 60 Glucose 96 Calcium 8.8 07/08/19 07/08/19 07/08/19 08:07 08:07 10:30 Creatine Kinase 149 CK-MB (CK-2) 0.91 Troponin I 0.101 0.100 NT-Pro-B Natriuret Pep [id number] H 07/08/19 15:31 Creatine Kinase CK-MB (CK-2) Troponin I 0.111 NT-Pro-B Natriuret Pep Impressions: Chest X-Ray 07/08/19 08:19 IMPRESSION: CARDIAC ENLARGEMENT. MILD VASCULAR CONGESTION. Assessment & Plan - Diagnosis (1) New onset of congestive heart failure Is this a current diagnosis for this admission?: Yes Plan: Better diuresis with increased Furosemide with Increase in Cr and mild alkalosis. Backing off diuresis. Has been started on GDMT (2) Left bundle branch block (LBBB) determined by electrocardiography Is this a current diagnosis for this admission?: Yes Plan: Manifest conduction disease in a setting of Dilated CMP (3) Hypertension Qualifiers: Hypertension type: essential hypertension Qualified Code(s): I10 - Essential (primary) hypertension Is this a current diagnosis for this admission?: Yes Plan: Is better controlled - Notes Notes: With newly diagnosed LV dysfunction ; will need ischemic work up. Can be arranged as out patient. Have arranged for Wearable defibrillator due to new finding of severe LV dysfuncuiton and dilated cardiomyopathy
[2019-07-13 06:03] LABS: ANION GAP 6 (5-19); BLOOD UREA NITROGEN 27 mg/dL (7-20); CALCIUM 8.9 mg/dL (8.4-10.2); CARBON DIOXIDE 33 mmol/L (22-30); CHLORIDE 99 mmol/L (98-107); GLUCOSE 91 mg/dL (75-110); POTASSIUM 5.1 mmol/L (3.6-5.0)
[2019-07-13] MEDS: LOSARTAN POTASSIUM 25 MG TABLET PO SCH (09:13)
[2019-07-13] MEDS: ISOSORBIDE MONONITRATE 30 MG TAB.ER.24H PO SCH (09:13)
[2019-07-13] MEDS: ASPIRIN 81 MG TABLET, ENT COATED PO SCH (09:13)
[2019-07-13] MEDS: PANTOPRAZOLE SODIUM 40 MG TABLET.DR PO SCH (09:13)
[2019-07-13] MEDS: MAGNESIUM OXIDE 400 MG TABLET PO SCH (09:13)
[2019-07-13] MEDS: CARVEDILOL 6.25 MG TABLET PO SCH (09:13)
[2019-07-13] MEDS ORDERED: FUROSEMIDE 40 MG TABLET PO SCH (10:00)
--- NOTE | 2019-07-13 14:52 | PDOC DISCHARGE SUMMARY ---
Impression - Admit/DC Date/PCP Admission Date/Primary Care Provider: 07/08/19 12:06 Discharge Date: 07/13/19 - Discharge Diagnosis (1) Acute systolic heart failure Is this a current diagnosis for this admission?: Yes (2) Acute bronchitis Is this a current diagnosis for this admission?: Yes (3) Acute kidney injury superimposed on chronic kidney disease Is this a current diagnosis for this admission?: Yes (4) Left bundle branch block (LBBB) determined by electrocardiography Is this a current diagnosis for this admission?: Yes (5) Hypertension Is this a current diagnosis for this admission?: Yes (6) Chest pain Is this a current diagnosis for this admission?: Yes - Assessment Summary: Patient presented to the hospital with complaints of shortness of breath and cough. Patient's vital signs were stable. Chest x-ray showed evidence of cardiomegaly. BNP was over 24,000. Interestingly patient had no significant lower extremity edema but did have mild crackles in the lung bases. Patient was admitted and treated for possible acute bronchitis as well as new onset congestive heart failure. EKG showed left bundle branch block. Patient however denied any chest pain no history of myocardial infarction or coronary artery disease. Unfortunately, we do not have any other EKGs in our system for comparison. Troponins were trended and showed a flat trend around 0.1. Echocardiogram was performed which revealed findings consistent with dilated cardiomyopathy with an EF of 15 to 20%, moderate aortic regurgitation, moderate mitral regurgitation, tricuspid regurgitation with global LV hypokinesis. It is suspected that this may be due to remodeling of the heart from uncontrolled hypertension. Patient has been treated with diuretics. Patient has also been initiated on Coreg 12.5 mg every 12 hours and losartan 25 mg daily to be continued with his home medication of isosorbide to achieve adequate afterload reduction. Patient's diuretic dose has been cut of Lasix 40 mg daily given his COURTNEY on CKD evidenced by his bump in creatinine as well as mild hyperkalemia. He will be discharged on this regimen and has been asked to follow-up at the [facility] for a repeat basic metabolic panel in 1 week. Patient has been set up with a LifeVest which will be delivered to his home in a few days and he has been given strict instructions to wear it at all times. Patient will be following up with Dr. Boyle in the outpatient clinic for ischemic work-up. Patient is being discharged in safe conditions. - Additional Information Resuscitation Status: Full Code Discharge Diet: Cardiac Discharge Activity: Activity As Tolerated, Balance Activity w/Rest, Weigh Daily Referrals: [facility] [Outside] (Follow up in 1 week for BMP blood draw) CARMEN BOYLE MD [ACTIVE STAFF] - Prescriptions: Carvedilol [Coreg 6.25 mg Tablet] 12.5 mg PO Q12 30 Days tablet Losartan Potassium [Cozaar 25 mg Tablet] 25 mg PO Q12 30 Days tablet Furosemide [Lasix 40 mg Tablet] 40 mg PO DAILY 30 Days tablet Home Medications: Aspirin [Aspir-Low] 81 mg PO DAILY 07/08/19 Atorvastatin Calcium [Lipitor 20 mg Tablet] 20 mg PO QHS 07/08/19 Isosorbide Mononitrate [Imdur 30 mg Tablet.er] 30 mg PO DAILY 07/08/19 Pantoprazole Sodium 40 mg PO DAILY 07/08/19 Carvedilol [Coreg 6.25 mg Tablet] 12.5 mg PO Q12 30 Days tablet 07/13/19 Furosemide [Lasix 40 mg Tablet] 40 mg PO DAILY 30 Days tablet 07/13/19 Losartan Potassium [Cozaar 25 mg Tablet] 25 mg PO Q12 30 Days tablet 07/13/19 History of Present Illiness History of Present Illness: AMINATA WATSON is a 63 year old male with a history of hypertension who presents to the hospital with complaints of progressive productive cough going on for the past 3 days. Cough is productive of some sputum with colors ranging from white to yellow to light green. Associated with it some posttussive emesis and had an episode of chills on Monday. Patient has also developed burning chest pain mostly in his right side but occasionally in his left parasternal region which began with the cough worsening. Denies any relationship to exertion or rest. Denies prior history of chest pains. Chest pain is aggravated by cough. Patient denies any history of congestive heart failure but does state that several years ago he was told that there was fluid buildup in his lungs from his heart rate beating its very fast. Denies history of atrial fibrillation. Patient currently states that the chest pain resolved since receiving the Lasix. Patient states that he takes only isosorbide and aspirin medications at home. Patient denies any shortness of breath, orthopnea, PND, or history of prior heart attacks. Physical Exam Vital Signs: Temp Pulse Resp BP Pulse Ox 97.6 F 88 16 136/97 H 97 07/13/19 12:00 07/13/19 12:00 07/13/19 12:00 07/13/19 12:00 07/13/19 12:00 Intake & Output 07/12/19 07/13/19 07/14/19 06:59 06:59 06:59 Intake Total 1212 1236 120 Output Total 1100 725 Balance 112 511 120 Weight 81.4 kg 82.5 kg General appearance: PRESENT: no acute distress, cooperative Respiratory exam: PRESENT: clear to auscultation donnell Extremities exam: ABSENT: pedal edema Neurological exam: PRESENT: alert, awake Results Laboratory Results: WBC 6.0 10^3/uL (4.0-10.5) 07/11/19 03:43 RBC 4.78 10^6/uL (4.35-5.55) 07/11/19 03:43 Hgb 15.4 g/dL (13.5-17.0) 07/11/19 03:43 Hct 45.7 % (37.9-51.0) 07/11/19 03:43 MCV 96 fl (80-97) 07/11/19 03:43 MCH 32.2 pg (27.0-33.4) 07/11/19 03:43 MCHC 33.6 g/dL (32.0-36.0) 07/11/19 03:43 RDW 13.3 % (11.5-14.0) 07/11/19 03:43 Plt Count 169 10^3/uL (150-450) 07/11/19 03:43 Lymph % (Auto) 23.2 % (13-45) 07/11/19 03:43 Caroline % (Auto) 11.5 % (3-13) 07/11/19 03:43 Eos % (Auto) 6.5 % (0-6) H 07/11/19 03:43 Baso % (Auto) 0.8 % (0-2) 07/11/19 03:43 Absolute Neuts (auto) 3.5 10^3/uL (1.7-8.2) 07/11/19 03:43 Absolute Lymphs (auto) 1.4 10^3/uL (0.5-4.7) 07/11/19 03:43 Absolute Monos (auto) 0.7 10^3/uL (0.1-1.4) 07/11/19 03:43 Absolute Eos (auto) 0.4 10^3/uL (0.0-0.6) 07/11/19 03:43 Absolute Basos (auto) 0.0 10^3/uL (0.0-0.2) 07/11/19 03:43 Seg Neutrophils % 58.0 % (42-78) 07/11/19 03:43 ESR 10 mm/hr (0-20) 07/09/19 05:09 Sodium 138.0 mmol/L (137-145) 07/13/19 04:50 Potassium 5.1 mmol/L (3.6-5.0) H 07/13/19 04:50 Chloride 99 mmol/L (98-107) 07/13/19 04:50 Carbon Dioxide 33 mmol/L (22-30) H 07/13/19 04:50 Anion Gap 6 (5-19) 07/13/19 04:50 BUN 27 mg/dL (7-20) H 07/13/19 04:50 Creatinine 1.35 mg/dL (0.52-1.25) H 07/13/19 04:50 Est GFR ( Amer) > 60 (>60) 07/13/19 04:50 Est GFR (MDRD) Non-Af 53 (>60) L 07/13/19 04:50 Glucose 91 mg/dL (75-110) 07/13/19 04:50 Calcium 8.9 mg/dL (8.4-10.2) 07/13/19 04:50 Phosphorus 3.5 mg/dL (2.5-4.5) 07/09/19 05:09 Magnesium 2.0 mg/dL (1.6-2.3) 07/10/19 04:57 Total Bilirubin 1.4 mg/dL (0.2-1.3) H 07/09/19 05:09 Direct Bilirubin 0.3 mg/dL (0.0-0.4) 07/09/19 05:09 Neonat Total Bilirubin Not Reportable 07/09/19 05:09 Neonat Direct Bilirubin Not Reportable 07/09/19 05:09 Neonat Indirect Bili Not Reportable 07/09/19 05:09 AST 71 U/L (17-59) H 07/09/19 05:09 ALT 90 U/L (<50) 07/09/19 05:09 Alkaline Phosphatase 59 U/L (38-126) 07/09/19 05:09 Creatine Kinase 149 U/L (55-170) 07/08/19 08:07 CK-MB (CK-2) 0.91 ng/mL (<4.55) 07/08/19 08:07 Troponin I 0.111 ng/mL 07/08/19 15:31 NT-Pro-B Natriuret Pep 74893 pg/mL (<125) H 07/08/19 10:30 Total Protein 5.3 g/dL (6.3-8.2) L 07/09/19 05:09 Albumin 2.9 g/dL (3.5-5.0) L 07/09/19 05:09 Influenza A (Rapid) NEGATIVE (NEGATIVE) 07/08/19 08:57 Influenza B (Rapid) NEGATIVE (NEGATIVE) 07/08/19 08:57 07/08/19 07/08/19 07/08/19 08:07 10:30 15:31 CK-MB (CK-2) 0.91 Troponin I 0.101 0.100 0.111 NT-Pro-B Natriuret Pep 49550 H Impressions: Chest X-Ray 07/08/19 08:19 IMPRESSION: CARDIAC ENLARGEMENT. MILD VASCULAR CONGESTION. Plan Time Spent: Less than 30 Minutes Stroke Is this a Stroke Patient?: No Acute Heart Failure - Is this a Heart Failure Patient?: Yes Documentation of LVEF assessment?: Yes LVEF < 40%?: Yes-if yes answer questions a through e a) Discharged on ACEI?: N/A Discharged on ARB b) Discharges on ARB?: Yes c) Discharged on ARNI?: No-Document Contraindications Reason(s) not discharged on ARNI: New onset heart failure d) Discharged on evidence-based Beta dillon(carvedilol, sustained release metoprolol succinate, or bisoprolol)?: Yes e) For LVEF <35%, discharged on Aldosterone antagonist?: Yes Reason(s) not discharged on Aldosterone antagonist for LVEF < 35%: Hyperkalemia 3. Anticoagulant therapy for permanect/persistent/paraoxysmal Afib or Aflutter: N/A
[2019-07-13 16:12] VITALS: BP 126/79
== END 2019-07-13 17:37 | disposition home or self-care (01) | DRG 291 ==
LOC: ER 07:32 → EH 12:06 → 5 18:50
PROVIDERS: ADMIT Internal Medicine; ATTEND Internal Medicine
DX: I13.0 Hypertensive heart and chronic kidney disease with heart failure and stage 1 through stage 4 chronic kidney disease, or unspecified chronic kidney disease (principal); I50.21 Acute systolic (congestive) heart failure; N17.9 Acute kidney failure, unspecified; I42.0 Dilated cardiomyopathy; N18.9 Chronic kidney disease, unspecified; J20.9 Acute bronchitis, unspecified; I44.7 Left bundle-branch block, unspecified; I35.1 Nonrheumatic aortic (valve) insufficiency; I34.0 Nonrheumatic mitral (valve) insufficiency; I36.1 Nonrheumatic tricuspid (valve) insufficiency; E87.5 Hyperkalemia; Z79.82 Long term (current) use of aspirin; Z88.6 Allergy status to analgesic agent; Z82.49 Family history of ischemic heart disease and other diseases of the circulatory system
CPT/HCPCS: 36415; 71046; 80048; 80053; 82550; 82553; 83735; 83880; 84100; 84484; 85025; 85652; 87804; 93005; 93010; 93306; 94640; 96361; 96374; 96375; 99285; J1650; J1940; J3490; J7120

== ENCOUNTER 2019-09-23 12:19 | Observation (INO) | payer OTHER ==
[2019-09-23] MEDS ORDERED: ASPIRIN 325 MG TABLET PO ONE (13:55)
--- NOTE | 2019-09-23 13:57 | ER Document Report ---
ED Medical Screen (RME) - General Chief Complaint: Shortness Of Breath Stated Complaint: SHORTNESS OF BREATH/CHEST PAIN/ELEVATED HEARTBEAT Notes: Patient is a 63-year-old white male with a reported past medical history of CHF and hypertension who presents to the emergency department with chief complaint of chest pain and shortness of breath. The patient states he finished his normal medications about 2 days ago and has been out for couple of days. He states over the weekend he began noticing some episodes of chest pain that he describes as a burning sensation. He states he is also had just generalized malaise and fatigue. He states today while at work he tried to go back and was experiencing dyspnea on exertion. States he could "feel my blood pressure was high". He denies any visual disturbances, numbness, tingling or weakness. He does add that he had a pretty severe headache earlier that is gradually resolving. I have treated and performed a rapid initial assessment of this patient. A comprehensive ED assessment and evaluation of the patient, analysis of test results and completion of medical decision making process will be conducted by additional ED providers. PHYSICAL EXAMINATION: GENERAL: Well-appearing, well-nourished and in no acute distress. A&Ox4. Answers questions appropriately. TRAVEL OUTSIDE OF THE [place] IN LAST 30 DAYS: No - Related Data Allergies/Adverse Reactions: codeine Allergy (Verified 09/23/19 13:55) Home Medications: Lasix Past Medical History - Social History Chew tobacco use (# tins/day): No Drug Abuse: None - Past Medical History Cardiac Medical History: Reports: Hx Hypertension Denies: Hx Atrial Fibrillation, Hx Congestive Heart Failure, Hx Coronary Artery Disease, Hx Heart Attack Pulmonary Medical History: Denies: Hx Asthma, Hx COPD Endocrine Medical History: Denies: Hx Diabetes Mellitus Type 1, Hx Diabetes Mellitus Type 2 Physical Exam - Vital signs Vitals: Temp Pulse Resp BP Pulse Ox 97.9 F 112 H 18 178/128 H 95 09/23/19 13:42 09/23/19 13:42 09/23/19 13:42 09/23/19 13:42 09/23/19 13:42 Course - Vital Signs Vital signs: Temp Pulse Resp BP Pulse Ox 97.9 F 112 H 18 178/128 H 95 09/23/19 13:42 09/23/19 13:42 09/23/19 13:42 09/23/19 13:42 09/23/19 13:42
[2019-09-23 14:30] LABS: ABSOLUTE BASOPHILS # (AUTO) 0.1 10^3/uL (0.0-0.2); ABSOLUTE EOSINOPHILS # (AUTO) 0.1 10^3/uL (0.0-0.6); ABSOLUTE LYMPHOCYTES (AUTO) 1.1 10^3/uL (0.5-4.7); ABSOLUTE MONOCYTES (AUTO) 0.5 10^3/uL (0.1-1.4); ABSOLUTE NEUT (AUTO) 4.5 10^3/uL (1.7-8.2); BASOPHILS % (AUTO) 1.1 % (0-2); EOSINOPHILS % (AUTO) 1.1 % (0-6); HEMATOCRIT 46.4 % (37.9-51.0); HEMOGLOBIN 15.7 g/dL (13.5-17.0); LYMPHOCYTES % (AUTO) 17.2 % (13-45); MEAN CORPUSCULAR HEMOGLOBIN 32.8 pg (27.0-33.4); MEAN CORPUSCULAR HGB CONC 33.9 g/dL (32.0-36.0); MEAN CORPUSCULAR VOLUME 97 fl (80-97); MONOCYTES % (AUTO) 7.4 % (3-13); PLATELET COUNT 184 10^3/uL (150-450); RED CELL DISTRIBUTION WIDTH 14.3 % (11.5-14.0); SEGMENTED NEUTROPHILS % (AUTO) 73.2 % (42-78); TOTAL CELLS COUNTED % (AUTO) 100 %; WHITE BLOOD COUNT 6.2 10^3/uL (4.0-10.5)
[2019-09-23 14:32] LABS: PROTHROMBIN TIME 14.3 SEC (11.4-15.4)
[2019-09-23 14:33] LABS: PARTIAL THROMBOPLASTIN TIME 28.1 SEC (23.5-35.8)
--- NOTE | 2019-09-23 14:41 | RADIOLOGY REPORT (SQ) ---
EXAM DESCRIPTION: CHEST 2 VIEWS COMPLETED DATE/TIME: 09/23/2019 2:33 pm REASON FOR STUDY: rocio, tay COMPARISON: 07/08/2019 EXAM PARAMETERS: NUMBER OF VIEWS: two views TECHNIQUE: Digital Frontal and Lateral radiographic views of the chest acquired. RADIATION DOSE: NA LIMITATIONS: none FINDINGS: LUNGS AND PLEURA: There are small bilateral pleural effusions. No consolidation. MEDIASTINUM AND HILAR STRUCTURES: No masses or contour abnormalities. HEART AND VASCULAR STRUCTURES: Heart is enlarged but stable in appearance no overt failure. BONES: No acute findings. HARDWARE: None in the chest. OTHER: No other significant finding. IMPRESSION: Cardiomegaly and small pleural effusions. No overt failure. TECHNICAL DOCUMENTATION: JOB ID: [id number] 2010 [employer]- All Rights Reserved Reading location - IP/workstation name: [email or web address]
[2019-09-23 14:47] LABS: ALBUMIN 3.6 g/dL (3.5-5.0); ALKALINE PHOSPHATASE 71 U/L (38-126); ANION GAP 7 (5-19); ASPARTATE AMINO TRANSFERASE 42 U/L (17-59); BILIRUBIN,TOTAL 0.9 mg/dL (0.2-1.3); BLOOD UREA NITROGEN 24 mg/dL (7-20); CARBON DIOXIDE 23 mmol/L (22-30); CHLORIDE 109 mmol/L (98-107); GLUCOSE 105 mg/dL (75-110); POTASSIUM 4.7 mmol/L (3.6-5.0); TOTAL PROTEIN 6.1 g/dL (6.3-8.2)
[2019-09-23 15:01] LABS: TROPONIN I 0.094 ng/mL
--- NOTE | 2019-09-23 15:05 | RADIOLOGY REPORT (SQ) ---
EXAM DESCRIPTION: CT HEAD WITHOUT COMPLETED DATE/TIME: 09/23/2019 2:45 pm REASON FOR STUDY: [place] HTN COMPARISON: None. TECHNIQUE: Axial images acquired through the brain without intravenous contrast. Images reviewed wi th bone, brain and subdural windows. Additional sagittal and coronal reconstructions were generated. Images stored on PACS. All CT scanners at this facility use dose modulation, iterative reconstruction, and/or weight based d osing when appropriate to reduce radiation dose to as low as reasonably achievable (ALARA). [facility]: Dose Right [facility]: CareDose [facility]: Dose Right [facility]: Teradose 4D [facility]: BESOS RADIATION DOSE: CT Rad equipment meets quality standard of care and radiation dose reduction techniq ues were employed. CTDIvol: 53.2 mGy. DLP: 1150 mGy-cm. mGy. LIMITATIONS: None. FINDINGS: VENTRICLES: Normal size and contour. CEREBRUM: No masses. No hemorrhage. No midline shift. No evidence for acute infarction. Normal gra y/white matter differentiation. No areas of low density in the white matter. CEREBELLUM: No masses. No hemorrhage. No alteration of density. No evidence for acute infarction. EXTRAAXIAL SPACES: No fluid collections. No masses. ORBITS AND GLOBE: No intra- or extraconal masses. Normal contour of globe without masses. CALVARIUM: No fracture. PARANASAL SINUSES: No fluid or mucosal thickening. SOFT TISSUES: No mass or hematoma. OTHER: No other significant finding. IMPRESSION: NORMAL BRAIN CT WITHOUT CONTRAST. EVIDENCE OF ACUTE STROKE: NO. COMMENT: Quality ID # [id number]: Final reports with documentation of one or more dose reduction techniques (e.g., Automated exposure control, adjustment of the mA and/or kV according to patient size, use of iterative reconstruction technique) TECHNICAL DOCUMENTATION: JOB ID: [id number] 2010 [employer]- All Rights Reserved Reading location - IP/workstation name: [email or web address]
--- NOTE | 2019-09-23 15:34 | ER Document Report ---
ED General - General Chief Complaint: Shortness Of Breath Stated Complaint: SHORTNESS OF BREATH/CHEST PAIN/ELEVATED HEARTBEAT Time Seen by Provider: 09/23/19 14:57 Notes: HPI: Patient is a 63-year-old male who presents today with the onset earlier today of some right-sided nonradiating chest discomfort. 4 out of 10 maximum. No radiation. No aggravating relieving factors. Patient has a past medical history as recorded including severe heart failure. He was admitted around and was discharged with instructions regarding a LifeVest but states "it was never delivered to me". He has no primary care physician and has had no fo llow-up. He has been out of his medications for 3 to 4 days including his fluid pills and blood pressure medications. Patient denies any runny nose, congestion, cough, fevers, calf pain or leg swelling. No recent trips or travel. No recent sick contacts. ROS: See HPI All other review of systems reviewed and otherwise negative Reviewed vital signs and nursing note as charted by RN. PHYSICAL EXAM: CONSTITUTIONAL: Alert and oriented and responds appropriately to questions. Well-appearing; well-nourished HEAD: Normocephalic; atraumatic EYES: PERRL; Conjunctivae clear, sclerae non-icteric ENT: Normal nose; no rhinorrhea; moist mucous membranes; pharynx without lesions noted NECK: Supple without meningismus; non-tender; no cervical lymphadenopathy, no masses CARD: Regular rate and rhythm; no murmurs; symmetric distal pulses RESP: Normal chest excursion without splinting or tachypnea; breath sounds clear and equal bilaterally; no wheezes, no rhonchi, no rales ABD/GI: Normal bowel sounds; non-distended; soft, non-tender; no palpable organomegaly or masses BACK: The back appears normal and is non-tender to palpation EXT: Normal ROM in all joints; non-tender to palpation; no edema SKIN: No acute lesions noted NEURO: CN 2-12 intact; 5/5 bilateral upper and lower extremity strength with sensation intact to light touch PSYCH: The patient's mood and manner are appropriate. Grooming and personal hygiene are appropriate. TRAVEL OUTSIDE OF THE [place] IN LAST 30 DAYS: No - Related Data Allergies/Adverse Reactions: codeine Allergy (Verified 09/23/19 13:55) Home Medications: Lasix Past Medical History - Social History Smoking Status: Never Smoker Chew tobacco use (# tins/day): No Drug Abuse: None Family History: Reviewed & Not Pertinent Patient has suicidal ideation: No Patient has homicidal ideation: No - Past Medical History Cardiac Medical History: Reports: Hx Hypertension Denies: Hx Atrial Fibrillation, Hx Congestive Heart Failure, Hx Coronary Artery Disease, Hx Heart Attack Pulmonary Medical History: Denies: Hx Asthma, Hx COPD Endocrine Medical History: Denies: Hx Diabetes Mellitus Type 1, Hx Diabetes Mellitus Type 2 Physical Exam - Vital signs Vitals: Temp Pulse Resp BP Pulse Ox 97.9 F 112 H 18 178/128 H 95 09/23/19 13:42 09/23/19 13:42 09/23/19 13:42 09/23/19 13:42 09/23/19 13:42 Course - Re-evaluation Re-evalutation: Given the above history and physical and cardiac evaluation including an EKG and an x-ray of the chest as well as basic and cardiac labs were ordered. I have reviewed the previous discharge information. It appears the patient was started on multiple blood pressure medications including isosorbide, Lasix, losartan, and a beta-dillon. He had an EF of 15 to 20%. [facility] and a LifeVest was supposed to be delivered to his house. Given the lack of any chest pain at this time, with no calf pain or recent trips or travel, with the patient's previous history, I do believe dissection and PE to be unlikely at this moment. EKG shows a heart rate of 109, sinus tachycardia, inverted T waves in leads I, aVL, with inverted T waves laterally in V6 with some depression. Left bundle branch block. No change compared to previous EKG. 09/23/19 15:33 Labs and imaging as recorded. No focal neurological deficits. No active chest pain. Aspirin has been provided. Creatinine is around baseline. I have provided her blood pressure medications and will meet the patient for further evaluation. \\ - Vital Signs Vital signs: Temp Pulse Resp BP Pulse Ox 97.9 F 112 H 21 H 170/126 H 91 L 09/23/19 13:42 09/23/19 13:42 09/23/19 15:01 09/23/19 15:01 09/23/19 15:01 - Laboratory Result Diagrams: 09/23/19 14:05 09/23/19 14:05 Laboratory results interpreted by me: 09/23/19 09/23/19 09/23/19 14:05 14:05 14:05 RDW 14.3 H Chloride 109 H BUN 24 H Creatinine 1.28 H Est GFR (MDRD) Non-Af 57 L ALT 59 H NT-Pro-B Natriuret Pep 95014 H Total Protein 6.1 L Critical Care Note - Critical Care Note Total time excluding time spent on procedures (mins): 32 Discharge - Discharge Clinical Impression: Hypertensive emergency, Non compliance w medication regimen Chest pain Qualifiers: Chest pain type: unspecified Qualified Code(s): R07.9 - Chest pain, unspecified Condition: Fair Disposition: ADMITTED INPATIENT Admitting Provider: Brook (Hospitalist) Unit Admitted: [facility]
[2019-09-23] MEDS ORDERED: LOSARTAN POTASSIUM 25 MG TABLET PO ONE (15:36)
[2019-09-23] MEDS ORDERED: FUROSEMIDE INJ/PF 40 MG/4 ML SDV IV ONE (15:36)
[2019-09-23] MEDS ORDERED: ISOSORBIDE MONONITRATE 60 MG TAB.ER.24H PO ONE (15:37)
--- NOTE | 2019-09-23 15:37 | EKG REPORT ---
SEVERITY:- ABNORMAL ECG - SINUS TACHYCARDIA BIATRIAL ABNORMALITIES LEFT BUNDLE BRANCH BLOCK : Confirmed by: Sintia Rueda MD 23-Sep-2019 15:36:33
[2019-09-23] MEDS ORDERED: HYDRALAZINE HCL INJ/PF 20 MG/1 ML SDV IV ONE (17:07)
[2019-09-23] MEDS ORDERED: MAG HYDROX/AL HYDROX/SIMETH SUSP 30 ML UDCUP PO PRN (17:07)
--- NOTE | 2019-09-23 17:22 | PDOC H&P ---
History of Present Illness Admission Date/PCP: 09/23/19 16:13 Patient complains of: Shortness of breath History of Present Illness: AMINATA WATSON is a 63 year old male with a past medical history of systolic CHF (LVEF 15 to 20%), hypertension, and medication noncompliance who presented to the emergency department today point of general sense of unwell, shortness of breath that has progressively worsened, and palpitations over the last 4 days after running out of his home medications. Patient was discharged in July of this year with a new diagnosis of systolic CHF; he admits that he has not followed up with primary care provider or cardiology. He is also not been in touch with the [employer] to provide the necessary deposit to receive his Pro V[employer]t. He does admit to anxiety and depression related to his new diagnosis and avoidance of seeking health care. Evaluation in the ED revealed hypertension, mild tachycardia, chronic LBBB, and unremarkable laboratory evaluation (patient's creatinine and proBNP are actually improved from his last admission). Chest x-ray demonstrated cardiomegaly with small bilateral pleural effusions. He is provided IV furosemide, Cozaar, and carvedilol. He is referred to the hospital service for admission management of the above- stated complaints findings. Past Medical History Cardiac Medical History: Reports: Congestive Heart Failure, Hypertension Denies: Atrial Fibrillation, Coronary Artery Disease, Myocardial Infarction Pulmonary Medical History: Denies: Asthma, Chronic Obstructive Pulmonary Disease (COPD) EENT Medical History: Reports: None Neurological Medical History: Reports: None Endocrine Medical History: Denies: Diabetes Mellitus Type 1, Diabetes Mellitus Type 2 Renal/ Medical History: Reports: Chronic Kidney Disease Malignancy Medical History: Reports: None GI Medical History: Reports: None Musculoskeltal Medical History: Reports: None Skin Medical History: Reports: None Psychiatric Medical History: Reports: None Traumatic Medical History: Reports: None Hematology: Reports: None Infectious Medical History: Reports: None Past Surgical History Past Surgical History: Reports: None Social History Information Source: Patient Lives with: Family Smoking Status: Never Smoker Electronic Cigarette use?: No Frequency of Alcohol Use: None Hx Recreational Drug Use: No Drugs: None Hx Prescription Drug Abuse: No - Advance Directive Resuscitation Status: Full Code Family History Family History: Reviewed & Not Pertinent Parental Family History Reviewed: Yes Children Family History Reviewed: Yes Sibling(s) Family History Reviewed.: Yes Medication/Allergy Home Medications: Carvedilol [Coreg 6.25 mg Tablet] 12.5 mg PO Q12 30 Days tablet 07/13/19 Furosemide [Lasix 40 mg Tablet] 40 mg PO DAILY 30 Days tablet 07/13/19 Losartan Potassium [Cozaar 25 mg Tablet] 25 mg PO Q12 30 Days tablet 07/13/19 Allergies/Adverse Reactions: codeine Allergy (Verified 09/23/19 13:55) Review of Systems Constitutional: PRESENT: fatigue. ABSENT: chills, fever(s), headache(s), weight gain, weight loss Eyes: ABSENT: visual disturbances Ears: ABSENT: hearing changes Cardiovascular: PRESENT: dyspnea on exertion, palpitations. ABSENT: chest pain, edema, orthropnea Respiratory: ABSENT: cough, hemoptysis Gastrointestinal: ABSENT: abdominal pain, constipation, diarrhea, hematemesis, hematochezia, nausea, vomiting Genitourinary: ABSENT: dysuria, hematuria Musculoskeletal: ABSENT: joint swelling Integumentary: ABSENT: rash, wounds Neurological: ABSENT: abnormal gait, abnormal speech, confusion, dizziness, focal weakness, syncope Psychiatric: ABSENT: anxiety, depression, homidical ideation, suicidal ideation Endocrine: ABSENT: cold intolerance, heat intolerance, polydipsia, polyuria Hematologic/Lymphatic: ABSENT: easy bleeding, easy bruising Physical Exam Vital Signs: Temp Pulse Resp BP Pulse Ox 97.9 F 112 H 28 H 175/133 H 90 L 09/23/19 13:42 09/23/19 13:42 09/23/19 16:01 09/23/19 16:01 09/23/19 16:01 Intake & Output 09/22/19 09/23/19 09/24/19 06:59 06:59 06:59 Weight 85.7 kg General appearance: PRESENT: no acute distress, cooperative, well-developed, well-nourished Head exam: PRESENT: atraumatic, normocephalic Eye exam: PRESENT: conjunctiva pink, EOMI, PERRLA. ABSENT: scleral icterus Ear exam: PRESENT: normal external ear exam Mouth exam: PRESENT: moist, tongue midline Respiratory exam: PRESENT: crackles - Bibasilar, symmetrical, unlabored, other - Room air. ABSENT: rales, rhonchi, wheezes Cardiovascular exam: PRESENT: RRR, +S1, +S2. ABSENT: diastolic murmur, rubs, systolic murmur Pulses: PRESENT: normal dorsalis pedis pul Vascular exam: PRESENT: normal capillary refill Extremities exam: PRESENT: full ROM, pedal edema - Trace bilaterally. ABSENT: calf tenderness, clubbing Neurological exam: PRESENT: alert, awake, oriented to person, oriented to place, oriented to time, oriented to situation, CN II-XII grossly intact. ABSENT: motor sensory deficit Psychiatric exam: PRESENT: anxious, appropriate affect, normal mood. ABSENT: homicidal ideation, suicidal ideation Skin exam: PRESENT: dry, intact, warm. ABSENT: cyanosis, rash Results Laboratory Results: 09/23/19 14:05 09/23/19 14:05 09/23/19 09/23/19 14:05 14:05 WBC 6.2 RBC 4.80 Hgb 15.7 Hct 46.4 MCV 97 MCH 32.8 MCHC 33.9 RDW 14.3 H Plt Count 184 Seg Neutrophils % 73.2 Sodium 138.8 Potassium 4.7 Chloride 109 H Carbon Dioxide 23 Anion Gap 7 BUN 24 H Creatinine 1.28 H Est GFR ( Amer) > 60 Glucose 105 Calcium 9.0 Total Bilirubin 0.9 AST 42 Alkaline Phosphatase 71 Total Protein 6.1 L Albumin 3.6 09/23/19 14:05 Troponin I 0.094 NT-Pro-B Natriuret Pep 16008 H Impressions: Chest X-Ray 09/23/19 13:55 IMPRESSION: Cardiomegaly and small pleural effusions. No overt failure. Head CT 09/23/19 13:57 IMPRESSION: NORMAL BRAIN CT WITHOUT CONTRAST. EVIDENCE OF ACUTE STROKE: NO. Assessment and Plan - Diagnosis (1) Hypertensive urgency Is this a current diagnosis for this admission?: Yes Plan: Patient presented emergency department with blood pressure 178/128. He reportedly ran out of his home antihypertensives on and has felt unwell since. He is admitted to the medical floor on continuous cardiac telemetry. We will resume his home medication regiment of losartan and carvedilol. He is receiving IV furosemide for acute CHF. IV hydralazine as available as needed for blood pressure control. Cardiac diet. (2) Acute systolic heart failure Is this a current diagnosis for this admission?: Yes Plan: Echocardiogram (07/2019) demonstrated LVEF 15 to 20%. Patient admits that he did not follow-up with his primary care provider or Dr. Staples as was scheduled. Contacted Cayla Chau ([phone]) with [employer]; patient remains eligible for financial assistance to receive his LifeVest. He needs to provide a $250 deposit. Patient in contact [phone] or [phone] to make payment arrangements. Resume home medication regimen of Cozaar and Coreg. IV furosemide for diuresis. Daily aspirin and statin therapy. (3) Left bundle branch block (LBBB) determined by electrocardiography Is this a current diagnosis for this admission?: Yes Plan: Chronic. Monitor on telemetry. Patient denies active chest pain. Remaining management as above. (4) Non compliance w medication regimen Is this a current diagnosis for this admission?: Yes Plan: Education/encouragement. Transitions assistant field hockey coach, discharge planning, patient educator, and registered dietitian are consulted. - Time Time Spent with patient: 35 or more minutes Medications reviewed and adjusted accordingly: Yes Anticipated discharge: Home Within: within 24 hours
[2019-09-23] MEDS: FUROSEMIDE INJ/PF 20 MG/2 ML SDV IV SCH (21:05)
[2019-09-23] MEDS: HEPARIN SOD (PORCINE) 5,000 UNIT/ML 1 ML VIAL SUBCUT SCH (21:05)
[2019-09-23] MEDS: ATORVASTATIN CALCIUM 10 MG TABLET PO SCH (21:06)
[2019-09-23] MEDS: CARVEDILOL 6.25 MG TABLET PO SCH (21:06)
[2019-09-23] MEDS: FAMOTIDINE 20 MG TABLET PO SCH (21:08)
[2019-09-24] MEDS: ACETAMINOPHEN 325 MG TABLET PO PRN (05:08)
[2019-09-24] MEDS: HEPARIN SOD (PORCINE) 5,000 UNIT/ML 1 ML VIAL SUBCUT SCH ×3 (05:08→21:35)
[2019-09-24 06:25] LABS: ANION GAP 6 (5-19); BLOOD UREA NITROGEN 23 mg/dL (7-20); CALCIUM 8.5 mg/dL (8.4-10.2); CARBON DIOXIDE 29 mmol/L (22-30); CHLORIDE 104 mmol/L (98-107); GLUCOSE 90 mg/dL (75-110); POTASSIUM 4.4 mmol/L (3.6-5.0)
[2019-09-24] MEDS: DOCUSATE SODIUM 100 MG CAPSULE PO SCH (09:28)
[2019-09-24] MEDS: FAMOTIDINE 20 MG TABLET PO SCH ×2 (09:28→21:36)
[2019-09-24] MEDS: LOSARTAN POTASSIUM 25 MG TABLET PO SCH (09:28)
[2019-09-24] MEDS: ASPIRIN 81 MG TABLET, ENT COATED PO SCH (09:28)
[2019-09-24] MEDS: CARVEDILOL 6.25 MG TABLET PO SCH ×2 (09:28→21:35)
[2019-09-24] MEDS: FUROSEMIDE INJ/PF 20 MG/2 ML SDV IV SCH ×2 (09:28→21:35)
--- NOTE | 2019-09-24 12:07 | PDOC PROGRESS REPORT ---
Subjective Progress Note for:: 09/24/19 Reason For Visit: HEART FAILURE 09/24/2019 Patient was admitted with shortness of breath, noncompliance, hypertensive urgency Physical Exam Vital Signs: Temp Pulse Resp BP Pulse Ox 97.8 F 85 16 135/92 H 97 09/24/19 08:15 09/24/19 08:15 09/24/19 08:15 09/24/19 08:15 09/24/19 08:15 Intake & Output 09/23/19 09/24/19 09/25/19 06:59 06:59 06:59 Weight 83.5 kg General appearance: PRESENT: no acute distress, other - Patient states he is feeling much better today Respiratory exam: PRESENT: clear to auscultation donnell. ABSENT: rales, rhonchi, wheezes Cardiovascular exam: PRESENT: RRR. ABSENT: diastolic murmur, rubs, systolic murmur Neurological exam: PRESENT: alert, awake, oriented to person, oriented to place, oriented to time, oriented to situation, CN II-XII grossly intact. ABSENT: motor sensory deficit Psychiatric exam: PRESENT: appropriate affect, normal mood. ABSENT: homicidal ideation, suicidal ideation Results Laboratory Results: 09/23/19 14:05 09/24/19 05:39 09/23/19 09/23/19 09/24/19 14:05 14:05 05:39 WBC 6.2 RBC 4.80 Hgb 15.7 Hct 46.4 MCV 97 MCH 32.8 MCHC 33.9 RDW 14.3 H Plt Count 184 Seg Neutrophils % 73.2 Sodium 138.8 138.9 Potassium 4.7 4.4 Chloride 109 H 104 Carbon Dioxide 23 29 Anion Gap 7 6 BUN 24 H 23 H Creatinine 1.28 H 1.30 H Est GFR ( Amer) > 60 > 60 Glucose 105 90 Calcium 9.0 8.5 Total Bilirubin 0.9 AST 42 Alkaline Phosphatase 71 Total Protein 6.1 L Albumin 3.6 09/23/19 09/24/19 14:05 05:39 Troponin I 0.094 NT-Pro-B Natriuret Pep 68287 H 8950 H Impressions: Chest X-Ray 09/23/19 13:55 IMPRESSION: Cardiomegaly and small pleural effusions. No overt failure. Head CT 09/23/19 13:57 IMPRESSION: NORMAL BRAIN CT WITHOUT CONTRAST. EVIDENCE OF ACUTE STROKE: NO. Assessment and Plan - Diagnosis (1) Congestive heart failure Is this a current diagnosis for this admission?: Yes (2) Chest pain Qualifiers: Chest pain type: unspecified Qualified Code(s): R07.9 - Chest pain, unspeci fied Is this a current diagnosis for this admission?: Yes (3) Hypertensive urgency Is this a current diagnosis for this admission?: Yes (4) Non compliance w medication regimen Is this a current diagnosis for this admission?: Yes - Plan Summary Summary: 09/24/2019 Temperature 97.5 pulse 76 blood pressure 138/97 oxygen saturation 96% on room air On admission his blood pressure was 178/128 BUN is stable at 23 creatinine stable 1.3 BNP on admission was 16,700 today it is 8950 Patient currently on Coreg 6.25 every 12 hours Lasix 20 mg IV every 12 hours Cozaar 25 mg daily 81 mg of aspirin Prior to coming into the hospital patient was taking the Coreg 12.5 every 12 hours Cozaar 25 mg every 12 hours and Lasix 40 mg a day. At least that is what he was supposed to be taking. Patient states he ran out of his medication because he did not have any money to get the prescriptions filled Will watch patient's response today recheck labs tomorrow and possibly discharge to home tomorrow to the care of his niece. States he does have money now to get his prescriptions filled but does not have the $250 deposit for his LifeVest. Will consult bilingual social worker to see if they can offer any help concerning medications - Time Time Spent with patient: 25-34 minutes
[2019-09-24] MEDS: HYDRALAZINE HCL INJ/PF 20 MG/1 ML SDV IV PRN (16:35)
[2019-09-24] MEDS: ATORVASTATIN CALCIUM 10 MG TABLET PO SCH (21:35)
[2019-09-25] MEDS: ACETAMINOPHEN 325 MG TABLET PO PRN (03:14)
[2019-09-25] MEDS: HYDRALAZINE HCL INJ/PF 20 MG/1 ML SDV IV PRN (03:16)
[2019-09-25] MEDS ORDERED: METOPROLOL TARTRATE PF/INJ 5 MG/5 ML SDV IV ONE (04:21)
[2019-09-25] MEDS ORDERED: METOPROLOL TARTRATE PF/INJ 5 MG/5 ML SDV IV PRN (04:33)
[2019-09-25] MEDS: HEPARIN SOD (PORCINE) 5,000 UNIT/ML 1 ML VIAL SUBCUT SCH (05:35)
[2019-09-25 06:02] LABS: ABSOLUTE BASOPHILS # (AUTO) 0.1 10^3/uL (0.0-0.2); ABSOLUTE EOSINOPHILS # (AUTO) 0.3 10^3/uL (0.0-0.6); ABSOLUTE MONOCYTES (AUTO) 0.5 10^3/uL (0.1-1.4); ABSOLUTE NEUT (AUTO) 5.4 10^3/uL (1.7-8.2); BASOPHILS % (AUTO) 0.7 % (0-2); EOSINOPHILS % (AUTO) 3.5 % (0-6); HEMATOCRIT 47.8 % (37.9-51.0); HEMOGLOBIN 16.3 g/dL (13.5-17.0); LYMPHOCYTES % (AUTO) 14.3 % (13-45); MEAN CORPUSCULAR HEMOGLOBIN 32.7 pg (27.0-33.4); MEAN CORPUSCULAR HGB CONC 34.1 g/dL (32.0-36.0); MEAN CORPUSCULAR VOLUME 96 fl (80-97); MONOCYTES % (AUTO) 6.6 % (3-13); PLATELET COUNT 166 10^3/uL (150-450); RED BLOOD COUNT 4.98 10^6/uL (4.35-5.55); RED CELL DISTRIBUTION WIDTH 13.7 % (11.5-14.0); SEGMENTED NEUTROPHILS % (AUTO) 74.9 % (42-78); TOTAL CELLS COUNTED % (AUTO) 100 %; WHITE BLOOD COUNT 7.2 10^3/uL (4.0-10.5)
[2019-09-25 06:22] LABS: ANION GAP 9 (5-19); BLOOD UREA NITROGEN 25 mg/dL (7-20); CALCIUM 8.8 mg/dL (8.4-10.2); CARBON DIOXIDE 24 mmol/L (22-30); CHLORIDE 104 mmol/L (98-107); GLUCOSE 94 mg/dL (75-110); POTASSIUM 3.9 mmol/L (3.6-5.0)
[2019-09-25] MEDS: CARVEDILOL 6.25 MG TABLET PO SCH (09:10)
[2019-09-25] MEDS: DOCUSATE SODIUM 100 MG CAPSULE PO SCH (09:10)
[2019-09-25] MEDS: FUROSEMIDE INJ/PF 20 MG/2 ML SDV IV SCH (09:10)
[2019-09-25] MEDS: FAMOTIDINE 20 MG TABLET PO SCH (09:10)
[2019-09-25] MEDS: LOSARTAN POTASSIUM 25 MG TABLET PO SCH (09:10)
[2019-09-25] MEDS: ASPIRIN 81 MG TABLET, ENT COATED PO SCH (09:10)
[2019-09-25 11:07] VITALS: BP 156/118
--- NOTE | 2019-09-25 18:13 | PDOC DISCHARGE SUMMARY ---
Impression - Admit/DC Date/PCP Admission Date/Primary Care Provider: 09/23/19 16:13 Discharge Date: 09/25/19 - Discharge Diagnosis (1) Congestive heart failure Is this a current diagnosis for this admission?: Yes (2) Chest pain Is this a current diagnosis for this admission?: Yes (3) Hypertensive urgency Is this a current diagnosis for this admission?: Yes (4) Non compliance w medication regimen Is this a current diagnosis for this admission?: Yes - Assessment Summary: 09/24/2019 Temperature 97.5 pulse 76 blood pressure 138/97 oxygen saturation 96% on room air On admission his blood pressure was 178/128 BUN is stable at 23 creatinine stable 1.3 BNP on admission was 16,700 today it is 8950 Patient currently on Coreg 6.25 every 12 hours Lasix 20 mg IV every 12 hours Cozaar 25 mg daily 81 mg of aspirin Prior to coming into the hospital patient was taking the Coreg 12.5 every 12 hours Cozaar 25 mg every 12 hours and Lasix 40 mg a day. At least that is what he was supposed to be taking. Patient states he ran out of his medication because he did not have any money to get the prescriptions filled Will watch patient's response today recheck labs tomorrow and possibly discharge to home tomorrow to the care of his niece. States he does have money now to get his prescriptions filled but does not have the $250 deposit for his LifeVest. Will consult health and social care teacher to see if they can offer any help concerning medications Patient was admitted on 09/23/2019 with shortness of breath and a history of systolic CHF with ejection fracture 15 to 20%. According to the chart patient ran out of his home medications 4 days ago. Patient was recently in the hospital in July of this year with newly diagnosed systolic CHF, patient has not followed up with his channeler insole due to money and has not secured his LifeVest due to a $250 deposit that is required. In the emergency room patient's blood pressure was 178/128. His home medications of Coreg and Cozaar were resumed as well as IV Lasix. As above patient has done well and diuresed a large amount of urine from his Lasix. They on the day of discharge his BNP has gone down to 4830. A 75% improvement from admission. She is asking to go home. She was discharged home on Coreg 12.5 mg every 12 hours Cozaar 25 mg every 12 hours Lasix 40 mg daily and Lipitor 10 mg nightly. Patient was given a 30-day supply with his prescriptions. And is to borrow the money from his employer and by his life vest, follow-up with Dr. Boyle. I answered all the patient's questions - Additional Information Resuscitation Status: Full Code Discharge Diet: Cardiac Discharge Activity: Activity As Tolerated, Balance Activity w/Rest, Weigh Daily Referrals: CARMEN BOYLE MD [ACTIVE STAFF] - 10/07/19 10:00 am Prescriptions: Carvedilol [Coreg 6.25 mg Tablet] 12.5 mg PO Q12 30 Days #60 tablet Losartan Potassium [Cozaar 25 mg Tablet] 25 mg PO Q12 30 Days #60 tablet Furosemide [Lasix 40 mg Tablet] 40 mg PO DAILY 30 Days #30 tablet Atorvastatin Calcium [Lipitor 10 mg Tablet] 10 mg PO QHS 30 Days #30 tablet Home Medications: Acetaminophen [Tylenol 325 mg Tablet] 650 mg PO Q4HP PRN tablet 09/25/19 Aspirin [Ecotrin 81 mg EC Tablet] 81 mg PO DAILY tabec 09/25/19 Atorvastatin Calcium [Lipitor 10 mg Tablet] 10 mg PO QHS 30 Days #30 tablet 09/25/19 Carvedilol [Coreg 6.25 mg Tablet] 6.25 mg PO Q12 tablet 09/25/19 Carvedilol [Coreg 6.25 mg Tablet] 12.5 mg PO Q12 30 Days #60 tablet 09/25/19 Furosemide [Lasix 40 mg Tablet] 40 mg PO DAILY 30 Days #30 tablet 09/25/19 Losartan Potassium [Cozaar 25 mg Tablet] 25 mg PO DAILY tablet 09/25/19 Losartan Potassium [Cozaar 25 mg Tablet] 25 mg PO Q12 30 Days #60 tablet 0 09/25/19 History of Present Illiness History of Present Illness: AMINATA WATSON is a 63 year old male Physical Exam Vital Signs: Temp Pulse Resp BP Pulse Ox 98.2 F 86 18 156/118 H 95 09/25/19 11:06 09/25/19 11:06 09/25/19 11:06 09/25/19 11:06 09/25/19 11:06 Intake & Output 09/24/19 09/25/19 09/26/19 06:59 06:59 06:59 Intake Total 830 Balance 830 Weight 83.5 kg 83.5 kg Results Laboratory Results: WBC 7.2 10^3/uL (4.0-10.5) 09/25/19 05:38 RBC 4.98 10^6/uL (4.35-5.55) 09/25/19 05:38 Hgb 16.3 g/dL (13.5-17.0) 09/25/19 05:38 Hct 47.8 % (37.9-51.0) 09/25/19 05:38 MCV 96 fl (80-97) 09/25/19 05:38 MCH 32.7 pg (27.0-33.4) 09/25/19 05:38 MCHC 34.1 g/dL (32.0-36.0) 09/25/19 05:38 RDW 13.7 % (11.5-14.0) 09/25/19 05:38 Plt Count 166 10^3/uL (150-450) 09/25/19 05:38 Lymph % (Auto) 14.3 % (13-45) 09/25/19 05:38 [place] % (Auto) 6.6 % (3-13) 09/25/19 05:38 Eos % (Auto) 3.5 % (0-6) 09/25/19 05:38 Baso % (Auto) 0.7 % (0-2) 09/25/19 05:38 Absolute Neuts (auto) 5.4 10^3/uL (1.7-8.2) 09/25/19 05:38 Absolute Lymphs (auto) 1.0 10^3/uL (0.5-4.7) 09/25/19 05:38 Absolute Monos (auto) 0.5 10^3/uL (0.1-1.4) 09/25/19 05:38 Absolute Eos (auto) 0.3 10^3/uL (0.0-0.6) 09/25/19 05:38 Absolute Basos (auto) 0.1 10^3/uL (0.0-0.2) 09/25/19 05:38 Seg Neutrophils % 74.9 % (42-78) 09/25/19 05:38 PT 14.3 SEC (11.4-15.4) 09/23/19 14:05 INR 1.10 09/23/19 14:05 APTT 28.1 SEC (23.5-35.8) 09/23/19 14:05 Sodium 137.2 mmol/L (137-145) 09/25/19 05:38 Potassium 3.9 mmol/L (3.6-5.0) 09/25/19 05:38 Chloride 104 mmol/L (98-107) 09/25/19 05:38 Carbon Dioxide 24 mmol/L (22-30) 09/25/19 05:38 Anion Gap 9 (5-19) 09/25/19 05:38 BUN 25 mg/dL (7-20) H 09/25/19 05:38 Creatinine 1.15 mg/dL (0.52-1.25) 09/25/19 05:38 Est GFR ( Amer) > 60 (>60) 09/25/19 05:38 Est GFR (MDRD) Non-Af > 60 (>60) 09/25/19 05:38 Glucose 94 mg/dL (75-110) 09/25/19 05:38 Calcium 8.8 mg/dL (8.4-10.2) 09/25/19 05:38 Total Bilirubin 0.9 mg/dL (0.2-1.3) 09/23/19 14:05 Direct Bilirubin 0.0 mg/dL (0.0-0.4) 09/23/19 14:05 Neonat Total Bilirubin Not Reportable 09/23/19 14:05 Neonat Direct Bilirubin Not Reportable 09/23/19 14:05 Neonat Indirect Bili Not Reportable 09/23/19 14:05 AST 42 U/L (17-59) 09/23/19 14:05 ALT 59 U/L (<50) H 09/23/19 14:05 Alkaline Phosphatase 71 U/L (38-126) 09/23/19 14:05 Troponin I 0.094 ng/mL 09/23/19 14:05 NT-Pro-B Natriuret Pep 4830 pg/mL (<125) H 09/25/19 05:38 Total Protein 6.1 g/dL (6.3-8.2) L 09/23/19 14:05 Albumin 3.6 g/dL (3.5-5.0) 09/23/19 14:05 09/23/19 09/24/19 09/25/19 14:05 05:39 05:38 Troponin I 0.094 NT-Pro-B Natriuret Pep 82357 H 8950 H 4830 H Impressions: Chest X-Ray 09/23/19 13:55 IMPRESSION: Cardiomegaly and small pleural effusions. No overt failure. Head CT 09/23/19 13:57 IMPRESSION: NORMAL BRAIN CT WITHOUT CONTRAST. EVIDENCE OF ACUTE STROKE: NO. Stroke Is this a Stroke Patient?: No Acute Heart Failure - Is this a Heart Failure Patient?: No
== END 2019-09-25 11:31 | disposition home or self-care (01) ==
LOC: ER 12:19 → INTOOBSV 16:13 → EH 16:13 → 3S 17:35
PROVIDERS: ADMIT Internal Medicine; ATTEND Internal Medicine
DX: I11.0 Hypertensive heart disease with heart failure (principal); I13.0 Hypertensive heart and chronic kidney disease with heart failure and stage 1 through stage 4 chronic kidney disease, or unspecified chronic kidney disease; I16.0 Hypertensive urgency; I50.21 Acute systolic (congestive) heart failure; N18.9 Chronic kidney disease, unspecified; R07.9 Chest pain, unspecified; I44.7 Left bundle-branch block, unspecified; R51 Headache; Z91.14 Patient's other noncompliance with medication regimen; Z59.8 Other problems related to housing and economic circumstances
CPT/HCPCS: 93005; 99291; 96374; 36415 ×3; 85025 ×2; 85610; 85730; 80048 ×2; 80053; 84484; 83880 ×3; 71046; 70450; 93010; G0378 ×4; J1644 ×2; J1940 ×4; J0360 ×2; J3490 ×3

== ENCOUNTER → 2019-10-30 | Outpatient (CLI) | payer OTHER | LOC: SP 13:03 | PROVIDERS: ATTEND Internal Medicine | DX: I50.22 Chronic systolic (congestive) heart failure (principal) | CPT/HCPCS: 93306 ==

== ENCOUNTER 2019-11-09 10:31 | Emergency (ER) | payer OTHER ==
[2019-11-09 11:07] LABS: BASOPHILS % (AUTO) 0.6 % (0-2); RED CELL DISTRIBUTION WIDTH 13.3 % (11.5-14.0); TOTAL CELLS COUNTED % (AUTO) 100 %
[2019-11-09 11:13] LABS: ABSOLUTE EOSINOPHILS # (AUTO) 0.1 10^3/uL (0.0-0.6); ABSOLUTE MONOCYTES (AUTO) 0.2 10^3/uL (0.1-1.4); ABSOLUTE NEUT (AUTO) 4.6 10^3/uL (1.7-8.2); EOSINOPHILS % (AUTO) 2.5 % (0-6); HEMATOCRIT 46.3 % (37.9-51.0); HEMOGLOBIN 15.9 g/dL (13.5-17.0); LYMPHOCYTES % (AUTO) 16.6 % (13-45); MEAN CORPUSCULAR HEMOGLOBIN 33.5 pg (27.0-33.4); MEAN CORPUSCULAR HGB CONC 34.5 g/dL (32.0-36.0); MEAN CORPUSCULAR VOLUME 97 fl (80-97); MONOCYTES % (AUTO) 4.1 % (3-13); PLATELET COUNT 150 10^3/uL (150-450); RED BLOOD COUNT 4.76 10^6/uL (4.35-5.55); SEGMENTED NEUTROPHILS % (AUTO) 76.2 % (42-78)
--- NOTE | 2019-11-09 11:20 | RADIOLOGY REPORT (SQ) ---
EXAM DESCRIPTION: CHEST SINGLE VIEW IMAGES COMPLETED DATE/TIME: 11/09/2019 10:53 am REASON FOR STUDY: bed 7 (chest pain/short of breath) COMPARISON: 09/23/2019. NUMBER OF VIEWS: One view. TECHNIQUE: Single frontal radiographic view of the chest acquired. LIMITATIONS: None. FINDINGS: LUNGS AND PLEURA: No opacities, masses or pneumothorax. No pleural effusion. MEDIASTINUM AND HILAR STRUCTURES: No masses. Contour normal. HEART AND VASCULAR STRUCTURES: Heart enlarged without failure. Normal vasculature. BONES: No acute findings. HARDWARE: None in the chest. OTHER: No other significant finding. IMPRESSION: HEART ENLARGED WITHOUT FAILURE. NO OTHER SIGNIFICANT RADIOGRAPHIC FINDING IN THE CHEST. TECHNICAL DOCUMENTATION: JOB ID: [id number] [employer]- All Rights Reserved Reading location - IP/workstation name: [email or web address]
--- NOTE | 2019-11-09 11:23 | ER Document Report ---
ED General - General Chief Complaint: Shortness Of Breath Stated Complaint: SHORTNESS OF BREATH Time Seen by Provider: 11/09/19 10:37 Primary Care Provider: CARMEN BOYLE MD [Primary Care Provider] - Follow up as needed TRAVEL OUTSIDE OF THE [place] IN LAST 30 DAYS: No - HPI Notes: Patient is a 63-year-old male who presents to the emergency department for evaluation. He has a history of congestive heart failure. He was recently contacted by his veterinary assistant, told that his ejection fraction was low. He states that he was told he needs to be on medications for a few more months, if his EF does not rebound, he may be a candidate for defibrillator. Patient also states he has been having intermittent burning in his chest. It lasts about a minute. Nothing seems to bring it on, nothing seems to make it better. The patient does have a history of a heart catheterization, was told he has no evidence of coronary artery disease. 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 He states that he occasionally gets a "sour stomach" while doing this. The patient states to me that a friend of his told him that burning in his chest was actually a relatives TIA, the patient admits this made him very anxious, so he presents to the ED for further evaluation. He states overall that he just does not think that "he is getting any better." - Related Data Allergies/Adverse Reactions: codeine Allergy (Verified 09/23/19 13:55) Home Medications: Obtained from patient verbal recall. Furosemide, Atorvastatin, carvedilol Past Medical History - General Information source: Patient - Social History Smoking Status: Never Smoker Frequency of alcohol use: Occasional Drug Abuse: None Family History: Reviewed & Not Pertinent Patient has homicidal ideation: No - Past Medical History Cardiac Medical History: Reports: Hx Congestive Heart Failure, Hx Hypertension Denies: Hx Atrial Fibrillation, Hx Coronary Artery Disease, Hx Heart Attack Pulmonary Medical History: Denies: Hx Asthma, Hx COPD Endocrine Medical History: Denies: Hx Diabetes Mellitus Type 1, Hx Diabetes Mellitus Type 2 Psychiatric Medical History: Reports: Hx Depression Review of Systems - Review of Systems Cardiovascular: See HPI Gastrointestinal: See HPI -: Yes All other systems reviewed and negative Physical Exam - Vital signs Vitals: Resp 18 11/09/19 10:41 - Notes Notes: Vital signs reviewed, please refer to chart. This is a very pleasant 63-year-old male who appears stated age. He is extremely anxious in appearance. Head is normocephalic, atraumatic. Pupils equal round, reactive to light. Neck is supple without meningismus. Heart is regular rate and rhythm. Lungs are clear to auscultation bilaterally. Abdomen is soft, nontender, normoactive bowel sounds throughout. Extremities without cyanosis, clubbing. He does have 1+ pretibial edema bilaterally. Posterior calves are nontender. Peripheral pulses are equal. Skin is warm and dry. Patient is awake, alert, neurological exam is nonfocal. Course - Re-evaluation Re-evalutation: 11/09/19 11:23 Patient presents the emergency department for evaluation. He complains of intermittent chest burning, intermittent shortness of breath, intermittent "sour stomach." Patient has been hospitalized multiple times for congestive heart failure. At this point he is between 96 and 100% on room air. He does appear to have new onset atrial fibrillation, but his rates are between 95 and 115. He is not on any sort of anticoagulation, and I do not see any old EKGs that exhibit this finding. Awaiting the remainder of his work-up. We will continue to monitor. 11/09/19 12:[address] Boyle, patient's veterinary assistant. We discussed this new onset atrial fibrillation. I explained to the him that the patient's heart rate has been between 85 and 115, primarily around 100. He is mostly rate controlled. His blood pressures have been borderline. Dr. Boyle agrees that outpatient management of this at this point is reasonable. We talked about his mildly elevated creatinine as well. Dr. Boyle recommends that patient maintain his Coreg dose of 6.25 mg in the morning, but states his evening dose should increase to 12-1/2 mg. He also asks that we do renally adjusted Eliquis dosing for this patient as well. I talked to the patient at length about his atrial fibrillation, the benefits and potential pitfalls of anticoagulation. He voiced understanding to this. At any rate, he is to follow-up closely with Dr. Boyle, and understands his new medication directions. We also talked about him discussing depression/anxiety treatment with his primary care physician, and he is amenable to this plan as well. He is to return to the ED with worsening or new concerning symptoms of any sort. - Vital Signs Vital signs: Temp Pulse Resp BP Pulse Ox 97.9 F 20 111/93 H 97 11/09/19 10:44 11/09/19 11:30 11/09/19 11:31 11/09/19 11:30 - Laboratory Result Diagrams: 11/09/19 10:45 11/09/19 10:45 Laboratory results interpreted by me: 11/09/19 11/09/19 11/09/19 10:45 10:45 11:14 MCH 33.5 H Sodium 136.9 L BUN 31 H Creatinine 1.59 H Est GFR ( Amer) 53 L Est GFR (MDRD) Non-Af 44 L Glucose 164 H ALT 64 H Creatine Kinase 50 L Total Protein 5.8 L Urine Protein 100 H Urine Blood SMALL H - Diagnostic Test Radiology reviewed: Reports reviewed Radiology results interpreted by me: 11/09/19 12:32 Chest X-Ray 11/09/19 10:35 IMPRESSION: HEART ENLARGED WITHOUT FAILURE. NO OTHER SIGNIFICANT RADIOGRAPHIC FINDING IN THE CHEST. - EKG Interpretation by Me Additional EKG results interpreted by me: 11/09/19 11:24 Atrial fibrillation with a rate of 103 bpm. Left axis deviation. Left bundle branch block. Patient does have history of left bundle branch block, but atrial fibrillation is new. Discharge - Discharge Clinical Impression: New onset atrial fibrillation Condition: Stable Disposition: HOME, SELF-CARE Instructions: Atrial Fibrillation ([facility]) Additional Instructions: Please take your carvedilol, 6.25 mg in the morning, and 12.5 mg in the evening. This should help with your heart rate. Start the Eliquis, 2.5 mg twice a day. Contact Dr. Boyle for a follow-up in the office this week. If you develop worsening or new concerning symptoms of any sort, please return immediately to the emergency department for reevaluation. Referrals: CARMEN BOYLE MD [Primary Care Provider] - Follow up as needed
[2019-11-09 11:26] LABS: ALBUMIN 3.5 g/dL (3.5-5.0); ALKALINE PHOSPHATASE 66 U/L (38-126); ANION GAP 7 (5-19); ASPARTATE AMINO TRANSFERASE 39 U/L (17-59); BILIRUBIN,DIRECT 0.1 mg/dL (0.0-0.4); BILIRUBIN,TOTAL 1.1 mg/dL (0.2-1.3); BLOOD UREA NITROGEN 31 mg/dL (7-20); CALCIUM 8.9 mg/dL (8.4-10.2); CARBON DIOXIDE 25 mmol/L (22-30); CHLORIDE 105 mmol/L (98-107); CREATINE KINASE 50 U/L (55-170); GLUCOSE 164 mg/dL (75-110); POTASSIUM 4.1 mmol/L (3.6-5.0); TOTAL PROTEIN 5.8 g/dL (6.3-8.2)
[2019-11-09 11:38] LABS: CREATINE KINASE MB 0.99 ng/mL (<4.55); TROPONIN I 0.027 ng/mL
[2019-11-09 11:44] LABS: APPEARANCE,URINE CLEAR; BILIRUBIN,URINE NEGATIVE (NEGATIVE); COLOR,URINE STRAW; GLUCOSE, URINE NEGATIVE (NEGATIVE); KETONES,URINE NEGATIVE (NEGATIVE); LEUKOCYTE ESTERASE,URINE NEGATIVE (NEGATIVE); NITRITE,URINE NEGATIVE (NEGATIVE); PROTEIN,URINE 100 mg/dL (NEGATIVE); URINE SPECIFIC GRAVITY 1.006; UROBILINOGEN,URINE NEGATIVE mg/dL (<2.0)
[2019-11-09] MEDS ORDERED: APIXABAN 2.5 MG TABLET PO ONE (12:32)
[2019-11-09 12:38] VITALS: BP 109/87
--- NOTE | 2019-11-09 20:39 | EKG REPORT ---
SEVERITY:- ABNORMAL ECG - ATRIAL FIBRILLATION, V-RATE 71-119 LEFT BUNDLE BRANCH BLOCK : Confirmed by: Sintia Rueda MD 09-Nov-2019 20:38:46
== END 2019-11-09 12:55 | disposition home or self-care (01) ==
LOC: ER 10:31
DX: I48.91 Unspecified atrial fibrillation (principal); I11.0 Hypertensive heart disease with heart failure; I50.9 Heart failure, unspecified; Z79.899 Other long term (current) drug therapy; R09.89 Other specified symptoms and signs involving the circulatory and respiratory systems; R06.02 Shortness of breath; R19.8 Other specified symptoms and signs involving the digestive system and abdomen; I44.7 Left bundle-branch block, unspecified; Z88.6 Allergy status to analgesic agent; Z88.5 Allergy status to narcotic agent
CPT/HCPCS: 36415; 71045; 80053; 81001; 82550; 82553; 84484; 85025; 93005; 93010; 99284